=== PATIENT | female | born 1945 | race Caucasian/White ===

== ENCOUNTER 2017-11-24 10:47 | Emergency (ER) | payer BC, MEDICARE ==
[2017-11-24 13:35] VITALS: BP 128/59
--- NOTE | 2017-11-24 13:40 | UC ---
Throat Pain/Nasal Chriss HPI - HPI Summary HPI Summary: 2 weeks of worsening sinus pain and congestion - History of Current Complaint Chief Complaint: UCRespiratory Stated Complaint: SINUS COMPLAINT Time Seen by Provider: 11/24/17 13:24 Hx Obtained From: Patient ?: No Onset/Duration: Sudden Onset, Lasting Weeks - 2, Still Present Severity: Moderate Cough: Nonproductive Associated Signs & Symptoms: Positive: Sinus Discomfort, Nasal Discharge - Allergies/Home Medications Allergies/Adverse Reactions: Allergies Allergy/AdvReac Type Severity Reaction Status Date / Time No Known Allergies Allergy Verified 11/24/17 13:24 Home Medications: Home Medications Alendronate Sodium [Fosamax-] 70 mg PO WEEKLY 11/24/17 [History Confirmed ] Calcium Carbonate-Vitamin D [Calcium 600 + D 600-400 mg-Unit] 1 tab PO DAILY [History Confirmed 11/24/17] Lisinopril TAB* [Prinivil TAB 10 MG*] 10 mg PO DAILY 11/24/17 [History Confirmed 11/24/17] Metoprolol Succinate [Metoprolol Succinate ER] 25 mg PO DAILY 11/24/17 [History Confirmed 11/24/17] Multiple Vitamins W/ Minerals [Womens Multivitamin] 1 tab PO DAILY 11/24/17 [ History Confirmed 11/24/17] Pseudoephedrine TAB* [Sudafed TAB*] 30 mg PO Q6H PRN 11/24/17 [History Confirmed 11/24/17] guaiFENesin ER TAB [Mucinex*] PRN 11/24/17 [History] PMH/Surg Hx/FS Hx/Imm Hx Previously Healthy: No Cardiovascular History: Hypertension - Surgical History Surgical History: Yes Surgery Procedure, Year, and Place: COLECTOMY 2012. OVARY REMOVED- RIGHT AND PROBABLE APPENDECTOMY - Family History Known Family History: Positive: None - Social History Occupation: Retired Lives: With Family Alcohol Use: None Substance Use Type: None Smoking Status (MU): Never Smoked Tobacco - Immunization History Most Recent Influenza Vaccination: FALL 2016 Review of Systems Constitutional: Chills, Fatigue Skin: Negative Eyes: Negative ENT: Nasal Discharge, Sinus Congestion, Sinus Pain/Tenderness Respiratory: Negative Cardiovascular: Negative Gastrointestinal: Negative Genitourinary: Negative Motor: Negative Neurovascular: Negative Musculoskeletal: Negative Neurological: Negative Psychological: Negative Is Patient Immunocompromised?: No All Other Systems Reviewed And Are Negative: Yes Physical Exam Triage Information Reviewed: Yes Appearance: Well-Appearing, No Pain Distress, Well-Nourished Vital Signs: Initial Vital Signs Temp 98.9 F 11/24/17 13:28 Pulse 60 11/24/17 13:28 Resp 16 11/24/17 13:28 BP 128/59 11/24/17 13:28 Pulse Ox 97 11/24/17 13:28 Vital Signs Reviewed: Yes Eye Exam: Normal Eyes: Positive: Conjunctiva Clear ENT Exam: Normal ENT: Positive: Normal ENT inspection, Hearing grossly normal, Pharynx normal, Nasal congestion, Nasal drainage, Sinus tenderness, Uvula midline. Negative: Tonsillar swelling, Tonsillar exudate, Trismus, Muffled voice, Hoarse voice Dental Exam: Normal Neck exam: Normal Neck: Positive: Supple, Nontender, No Lymphadenopathy Respiratory Exam: Normal Respiratory: Positive: Chest non-tender, Lungs clear, Normal breath sounds, No respiratory distress, No accessory muscle use Cardiovascular Exam: Normal Cardiovascular: Positive: RRR, No Murmur, Pulses Normal, Brisk Capillary Refill Musculoskeletal Exam: Normal Musculoskeletal: Positive: Strength Intact, ROM Intact, No Edema Neurological Exam: Normal Neurological: Positive: Alert, Muscle Tone Normal Psychological Exam: Normal Skin Exam: Normal Throat Pain/Nasal Course/Dx - Course Assessment/Plan: Zithromax, Flonase, Mucinex , increase fluids, tylenol, ibuprofen follow with pcp prn - Differential Dx/Diagnosis Provider Diagnoses: Acute Sinusitis Discharge - Discharge Plan Condition: Stable Disposition: HOME Prescriptions: Azithromycin TAB* [Zithromax TAB (Z-NAIMA) 250 mg #6 tabs] 2 tab PO .TODAY, THEN 1 DAILY #1 naima Fluticasone NASAL SPRAY 50MCG* [Flonase NASAL SPRAY 50MCG*] 2 spray BOTH NARES DAILY #1 btl Patient Education Materials: Rhinosinusitis (ED) Referrals: Deon Anaya MD [Primary Care Provider] - If Needed
== END 2017-11-24 13:47 | disposition home or self-care (01) ==
LOC: UCCORT 10:47
DX: J01.90 Acute sinusitis, unspecified (principal); I10 Essential (primary) hypertension
CPT/HCPCS: 99202; G0463

== ENCOUNTER 2018-11-12 08:33 | Inpatient (IN) | payer MEDICARE ==
--- NOTE | 2018-10-31 19:46 | HP ---
HISTORY AND PHYSICAL: DATE OF ADMISSION/SURGERY: 11/12/18 DATE OF OFFICE VISIT: 10/30/18 SURGEON: Anay Tracey MD * (DICTATED BY BRAD RUSH) PROCEDURE: Right total knee arthroplasty. CHIEF COMPLAINT: Right knee pain. HISTORY OF PRESENT ILLNESS: Ms. Villar is a 73-year-old female with end-stage osteoarthritis of the right knee. She has failed conservative treatment, elected to proceed with a right total knee arthroplasty. PAST MEDICAL HISTORY: Hypertension, osteoporosis, and history of colon cancer. PAST SURGICAL HISTORY: Oophorectomy, deviated septum surgery, carpal tunnel release, colon resection and tonsillectomy. CURRENT MEDICATIONS: 1. Lisinopril 5 mg daily. 2. Fluticasone nasal spray. 3. Claritin 10 mg daily. 4. Alendronate sodium 70 mg once a week. 5. Calcium with vitamin D. 6. Metoprolol 25 mg daily. 7. Multivitamin. ALLERGIES: No known drug allergies. FAMILY HISTORY: Ovarian cancer. SOCIAL HISTORY: She is a 73-year-old female. She lives with her . She does not smoke, use drugs or alcohol. REVIEW OF SYSTEMS: A complete 14-point review of systems was reviewed with the patient, is all negative or noncontributory. She denies history of DVT, PE, hepatitis, HIV or anesthesia problems. PHYSICAL EXAMINATION GENERAL: She is well developed, well nourished, in no acute distress. VITAL SIGNS: She stands 65 inches tall, weighs 182 pounds, her blood pressure is 140/28, her heart rate is 72. HEENT: Normocephalic, atraumatic. NECK: Supple. No palpable lymph nodes. PULMONARY: Lungs are clear to auscultation bilaterally. CARDIO: Regular rate and rhythm. Strong S1 and S2. ABDOMEN: Soft, nontender, nondistended. NEUROLOGICAL: She is alert and oriented x3. MUSCULOSKELETAL: Right lower extremity: Skin is intact. There are no open wounds or abrasions. There is a moderate joint effusion. She has some tenderness over the medial and lateral joint line. There is a valgus deformity at 12 degrees. His range of motion is 10 to 115 degrees of flexion with patellofemoral crepitus. She has 2+ dorsalis pedis pulse intact sensation in her lower extremities. Muscle group strengths are intact at 5/5. ASSESSMENT AND PLAN: Ms. Villar is a 73-year-old female with end-stage osteoarthritis of the right knee. She has failed conservative treatment and elected to proceed with a right total knee arthroplasty. The surgery is scheduled for 11/12/[address] Tracey discussed the risks and benefits of surgery at today's visit and all of her questions were answered. She will follow up with Dr. Tracey 2 weeks after the surgery. BRAD RUSH [id number]/[facility] #: [id number] SYEDA
[~2018-11-12 08:33] MED LIST: Buffered Lidocaine 0.9% SYRIN* 5 ML/SYR SYRINGE INTRADERM ONE; Dexamethasone IV* 4 MG/ML 1 ML (4 MG) IV SLOW PU ONE; Famotidine IV* 10 MG/ML 2 ML (20 mg) IV ONE; Lactated Ringers 1000 ML Bag* 1,000 ML IV SCH; Tranexamic Acid 1,000 MG in NS 0.9% 50 ML* (outpatient use) IV SCH
--- OUTSIDE RECORDS SUMMARY | 2018-11-12 08:37 | XMS REPORT | Continuity of Care Document ---
:1945 External Reference #:[id number] Author Name Amaya Munguia Care Team Providers Name Role Phone Yuliana Vargas PA Primary Care Physician Unavailable Payers Type Date Identification Numbers Payment Provider Subscriber Effective: 2010 Policy Number: [id number] BS [employer]ets Cher During Expires: 2011 PayID: [id number] [address] [address] [place] [address] Effective: 2017 Policy Number: [id number] Medicare Blue Ppo Cher During PayID: [id number] [address] [address] [place] [address] Advance Directives Description No Information Available Problems Date Description Provider Status Onset: 10/16/2018 Localized, primary osteoarthritis Anay Tracey M.D. 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 Tobacco Use Start: Unknown Never Smoked Cigarettes Smoking Status Reviewed: 10/30/18 Never Smoked Cigarettes ETOH Use Denies alcohol use Tobacco Use Start: Unknown Patient has never smoked Recreational Drug Use Never Used Drugs Exercise Type/Frequency Walks daily Allergies, Adverse Reactions, Alerts Description No Known Drug Allergies Medications Medication Date Status Form Strength Qnty SIG Indications Ordering Provider Lisinopril / Active Tablets 5mg 1 by Unknown 0000 mouth every day Fluticasone / Active Suspension 50mcg/Act 2 sprays Unknown Propionate 0000 each nostril bid prn Claritin / Active Capsules 10mg 30caps 1 tab Unknown 0000 daily prn Alendronate / Active Tablets 70mg 1 tab Unknown Sodium 0000 once weekly Calcium 600 + 00/ Active Tablets 600-200mg- 1 by Unknown D 0000 Unit mouth daily Metoprolol / Active Tablets ER 25mg 1 by Unknown Succinate ER 0000 24HR mouth every day Multivitamin 00/ Active Tablets 1 by Unknown Adults 0000 mouth every day Vitamin B-12 / Hx Injection inject Unknown 0000 - 1000 mcg 04/29/ monthly 2018 by in there office. Medications Administered in Office Medication Date Status Form Strength Qnty SIG Indications Ordering Provider Celestone 3 mg Administered Injection Alexy M and 3mg 018 MD Darryl Celestone 3 mg Administered Injection Alexy M and 3mg 018 MD Darryl Immunizations Description No Information Available Vital Signs Date Vital Result Comment 10/30/2018 8:45am Height 65 inches 5'5" Weight 182.00 lb Heart Rate 72 /min BP Systolic 140 mmHg BP Diastolic 78 mmHg Respiratory Rate 20 /min Body Temperature 97.4 F BMI (Body Mass Index) 30.3 kg/m2 10/16/2018 8:22am Height 65 inches 5'5" Weight 190.00 lb Heart Rate 80 /min BP Systolic 148 mmHg BP Diastolic 84 mmHg BMI (Body Mass Index) 31.6 kg/m2 10/14/2018 2:17pm Height 65 inches 5'5" Weight 190.00 lb BP Systolic Sitting 136 mmHg BP Diastolic Sitting 72 mmHg Respiratory Rate 17 /min Pain Level 2 9 with bending BMI (Body Mass Index) 31.6 kg/m2 08/12/2018 10:25am Height 65 inches 5'5" Weight 190.00 lb BP Systolic Sitting 124 mmHg BP Diastolic Sitting 76 mmHg Respiratory Rate 16 /min 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 BMI (Body Mass Index) 31.6 kg/m2 05/08/2018 1:01pm Height 63.75 inches 5'3.75" Weight 185.00 lb Heart Rate 77 /min BP Systolic Sitting 120 mmHg BP Diastolic Sitting 76 mmHg Respiratory Rate 12 /min Pain Level 3 BMI (Body Mass Index) 32.0 kg/m2 09/26/2017 9:22am Height 63.75 inches 5'3.75" Weight 185.00 lb Heart Rate 76 /min BP Systolic Sitting 128 mmHg BP Diastolic Sitting 74 mmHg Respiratory Rate 16 /min Pain Level 1 O2 % BldC Oximetry 98 % BMI (Body Mass Index) 32.0 kg/m2 08/15/2017 1:07pm Height 63.75 inches 5'3.75" Weight 190.00 lb Heart Rate 72 /min BP Systolic Sitting 132 mmHg BP Diastolic Sitting 76 mmHg Respiratory Rate 12 /min no respiratory difficulties Pain Level 2 O2 % BldC Oximetry 96 % BMI (Body Mass Index) 32.9 kg/m2 Results Description No Information Available Procedures Date Code Description Status 08/12/2018 84554 Rad Exam; Both Knees, Standing Ap Completed 08/12/2018 21483 Inject/Drain Joint/Bursa Major W/O US Completed 08/16/2017 19633 Rad Exam; Foot Comp Completed 08/16/2017 45097 Rad Exam; Foot Comp Completed 08/15/2017 94784 Rad Exam; Foot Comp Completed 08/15/2017 76494 Rad Exam; Foot Comp Completed 12/07/2010 13394 Rad Exam; Ankle Comp Completed 11/09/2010 29984 CLSD TX Distal Fib FX (Lateral Malleolus) w/o manipulation Completed Encounters Type Date Location Provider Dx Diagnosis Office Visit 10/16/2018 Orthopedic Anay Tracey M17.0 Bilateral primary 8:15a [facility] osteoarthritis of knee M25.561 Pain in right knee M25.562 Pain in left knee M17.11 Unilateral primary osteoarthritis, right knee M21.061 Valgus deformity, not elsewhere classified, right knee Office Visit 10/14/2018 Mona Gerardo7.0 Bilateral primary 2:15p [facility] Andrews MD osteoarthritis of [place] knee Office Visit 08/12/2018 Mona Gerardo7.0 Bilateral primary 10:15a [facility] Y[facility] Andrews MD osteoarthritis of [place] knee Office Visit 05/08/2018 Orthopedic Alexis M19.071 Primary 1:00p [facility] Rodgers M.D. osteoarthritis, [place] right ankle and foot Office Visit 09/26/2017 [facility] M19.071 Primary 9:15a [facility] M.D. osteoarthritis, [place] right ankle and foot Office Visit 08/15/2017 Mona Espinoza M19.071 Primary 1:00p [facility] M.D. osteoarthritis, [place] right ankle and foot M19.072 Primary osteoarthritis, left ankle and foot Plan of Treatment Future Appointment(s):11/29/2018 11:30 am - Anay Tracey M.D. at [facility]11/12/2018 3:30 pm - ANTHONY Elliott at [facility]11/12/2018 3:30 pm - BRAD Cunningham at [facility]11/12/2018 3:30 pm - Anay Tracey M.D. at [facility]10/30/2018 - Anay Tracey M.D.M17.0 Bilateral primary osteoarthritis of kneeFollow up:Follow up: 2 weeks after uocmsmtN14.561 Pain in right kneeM21.061 Valgus deformity, not elsewhere classified, right knee
--- OUTSIDE RECORDS SUMMARY | 2018-11-12 08:38 | XMS REPORT | Continuity of Care Document ---
:1945 External Reference #:[id number] Author Name Yuliana Vargas PA Address [address] [place] [address] Care Team Providers Name Role Phone Deon Anaya M.D. 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 Active Onset: 12/08/2011 Folliculitis Deon Anaya M.D. Active Onset: 12/08/2011 Gynecologic examination Ashlee Monet FNP Active Onset: 12/08/2011 Hyperlipidemia Deon Anaya M.D. Active Onset: 12/08/2011 Sciatica Ashlee Monet FNP Active Onset: 08/02/2018 Essential hypertension Yuliana Vargas PA Active Onset: 08/02/2018 Osteoarthritis Yuliana Vargas PA Active Onset: 08/02/2018 Disorder of nail Yuliana Vargas PA Active Onset: 08/02/2018 Carcinoma of colon Yuliana Vargas PA Active Family History Date Family Member(s) Problem(s) Comments First Brother due to in plane crash () First Brother due to has another brother who is adopted, ( ) living Second Brother due to adopted () Second Brother adopted Second Brother 55 First Sister carpal tunnel otherwise healthy 62yrs Social History Type Date Description Comments Sex Unknown Marital Status Has been 1 time Lives With Spouse Pets 1 cat 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 @ [employer] Work Status Part-Time Employment Hand Dominance Right-Handed ETOH Use Never used alcohol Tobacco Use Reviewed: 04/17/17 Patient has never smoked Recreational Drug Use Never Used Drugs Smoking Status Reviewed: 10/21/18 Patient has never smoked Enjoy Exercising active walking Exercise Limitations none Tattoo/Piercing Pierced ears Tattoo/Piercing Negative For Tattoo Allergies, Adverse Reactions, Alerts Description No Known Drug Allergies Medications Medication Date Status Form Strength Qnty SIG Indications Ordering Provider Amoxicillin/C 09/25 Active Tablets 875-125mg 20tab 1 by mouth J01.90 Deon lavulanate s twice a day Riley Potassium with food s, M.D. Lisinopril 08/10 Active Tablets 10mg 90tab take one Z00. s tablet by Riley mouth every s, M.D. day Fluticasone 04/17 Active Suspension 50mcg/Act 16gm 2 puffs each J30.9 Deon Propionate nare twice a Riley day for 2 s, M.D. weeks Claritin 11/08 Active Capsules 10mg 30cap 1 by mouth J30.9 s every day Riley april s M.DMarcial 2015 Alendronate 06/07 Active Tablets 70mg 4tabs take 1 tablet Deon Sodium /2014 by mouth Riley every week in s, M.D. the morning with 6-8 oz of water and remain upright for 30 minutes Calcium 600 + 12/27 Active Tablets 600-400mg 1 tab by Ang Monet /2011 -Unit mouth twice a Ashlee day G., [employer] Metoprolol 12/27 Active Tablets ER 25mg 90tab take one Deon Succinate ER /2011 24HR s tablet by Riley mouth every s, M.D. day Lisinopril 07/10 Hx Tablets 5mg 90tab 1 by mouth Z00.01 s every day Riley - s MMarcialD. 08/10 Shingles 05/23 Hx Ok to get J30.9 Deon Immunization immunization Riley - at the s, M.D. 07/10 Azithromycin 04/02 Hx Tablets 250mg 6tabs 2 tablets day J01.90 one then one Riley - tablet day s, M.DMarcial 07/10 thru day Azelastine 04/02 Hx Solution 0.05% 6ml one drop in H10.45 each eye Riley (Ophthalmic) - twice a day s, M.D. 07/10 Zithromax 09/21 Hx Tablets 250mg 6tabs day number J01.00 one two Riley - qd,then s, M.DMarcial 05/22 two thru one pill every day Shingles 06/08 Hx ok to receive Vaccine the vaccine Riley - s M.DMarcial 07/10 Terbinafine 05/19 Hx Tablets 250mg 30tab one every day B35.1 s Riley - s MMarcialDMarcial 05/22 Fosamax 08/03 Hx Tablets 70mg 4tabs 1 tab by M81.0 mouth every Riley - week. take in s, M.DMarcial 05/07 in the morning with 6-8 oz of water and remain upright for 30 minutes Zithromax 10/03 Hx Tablets 250mg 6tabs day number 461.8 Deon Z-Aj one two Riley - tablets then s, M.DMarcial 08/02 day number two thru day number five one qd Metoprolol 01/08 Hx Tablets ER 25mg 45tab 11/27 tab by 401.1 Deon Succinate ER 24HR s mouth every Riley - day s, M.DMarcial 05/19 Azithromycin 10/25 Hx Tablets 250mg 6tabs 2 tablets day 461.1 one then one Riley - tablet day2 s, M.DMarcial 01/08 thru day Nasacort Aq 10/23 Hx Aerosol 55mcg/Act 1unit 1 spray each Chiki nostril twice Ashlee - a day OZZIE AlcarazP 01/08 Zithromax 03/20 Hx Tablets 250mg 6tabs day number 466.0 one two Riley - qd,thendays s, M.D. 01/08 two thru five one pill qd Robitussin 02/12 Hx With 6Oz 1-2 teaspoons 786.2 Deon With Codeine Codeine q 6hours Riley - s, M.D. 01/08 Zithromax 12/08 Hx Tablets 250mg 6tabs day number Deon Z-Aj one two Riley - tablets then s, M.D. 12/27 day number two thru day number five one qd Immunizations CPT Code Status Date Vaccine Reaction Lot # 52436 Given 08/29/2018 Flu High Dose Vaccine 33173 Given 09/08/2017 Flu High Dose HD Flu [id number] p Vaccine 72368 Given 08/22/2016 Flu High Dose Vaccine 41514 Given 08/14/2015 Flu High Dose Vaccine 50533 Given 05/19/2015 Prevnar 13 risk & benefits discussed 92425 Given 08/06/2014 Flu Triv Old Code 93014 Given 09/11/2013 Flu Triv Old Code 20857 Given 09/11/2013 Flu Triv Old Code 39744 Given 11/10/2012 Flu Triv Old Code 41946 Given 12/27/2011 Flu Triv Old Code 55957 Given 10/26/2010 Tdap Vaccine over 7 yrs old 06250 Given 10/26/2010 Flu Triv Old Code Vital Signs Date Vital Result Comment 09/25/2018 9:48am Weight 194.00 lb BP Systolic 130 mmHg BP Diastolic 70 mmHg Body Temperature 99.0 F 07/24/2018 2:31pm Weight 193.00 lb BP Systolic 126 mmHg BP Diastolic 80 mmHg Height 63 inches 5'3" Body Temperature 98.8 F Respiratory Rate 12 /min BMI (Body Mass Index) 34.2 kg/m2 05/07/2018 9:46am Weight 188.00 lb BP Systolic 124 mmHg BP Diastolic 74 mmHg 02/01/2018 9:20am Weight 183.00 lb BP Systolic 120 mmHg BP Diastolic 76 mmHg 10/23/2017 10:01am Weight 187.00 lb BP Systolic 126 mmHg BP Diastolic 80 mmHg 08/10/2017 9:47am Weight 190.00 lb 07/10/2017 1:24pm Weight 192.00 lb BP Systolic 126 mmHg BP Diastolic 76 mmHg Height 63 inches 5'3" Body Temperature 97.8 F Respiratory Rate 12 /min BMI (Body Mass Index) 34.0 kg/m2 04/17/2017 9:48am Weight 196.00 lb BP Systolic 138 mmHg BP Diastolic 102 mmHg Body Temperature 97.3 F 04/02/2017 11:05am Weight 194.00 lb BP Systolic 124 mmHg BP Diastolic 70 mmHg Body Temperature 96.6 F 11/08/2016 11:29am Weight 190.00 lb BP Systolic 122 mmHg BP Diastolic 80 mmHg Heart Rate 64 /min Body Temperature 98.8 F O2 % BldC Oximetry 98 % 06/06/2016 8:49am Weight 195.00 lb BP Systolic 124 mmHg BP Diastolic 70 mmHg 06/02/2016 11:20am BP Systolic 120 mmHg BP Diastolic 80 mmHg 05/22/2016 8:33am Weight 195.00 lb BP Systolic 128 mmHg BP Diastolic 74 mmHg Height 63.6 inches 5'3.60" Heart Rate 64 /min Body Temperature 98.8 F Respiratory Rate 14 /min BMI (Body Mass Index) 33.9 kg/m2 09/21/2015 9:18am Weight 196.00 lb BP Systolic 130 mmHg BP Diastolic 80 mmHg Body Temperature 97.9 F 05/19/2015 8:51am Weight 187.00 lb BP Systolic 128 mmHg BP Diastolic 70 mmHg Height 63 inches 5'3" Heart Rate 60 /min Body Temperature 98.0 F Respiratory Rate 14 /min BMI (Body Mass Index) 33.1 kg/m2 01/20/2015 11:06am BP Systolic 130 mmHg BP Diastolic 70 mmHg 04/29/2014 11:02am Weight 187.00 lb BP Systolic 140 mmHg BP Diastolic 70 mmHg Height 64 inches 5'4" Heart Rate 70 /min Body Temperature 98.0 F Respiratory Rate 12 /min BMI (Body Mass Index) 32.1 kg/m2 10/03/2013 10:29am Weight 188.00 lb BP Systolic 126 mmHg BP Diastolic 80 mmHg Body Temperature 97.8 F 01/08/2013 8:49am Weight 190.00 lb BP Systolic 124 mmHg BP Diastolic 78 mmHg Height 65 inches 5'5" Heart Rate 72 /min Body Temperature 98.4 F Respiratory Rate 16 /min BMI (Body Mass Index) 31.6 kg/m2 10/25/2012 9:50am Weight 193.00 lb Body Temperature 98.8 F 05/15/2012 11:18am Weight 185.00 lb BP Systolic 128 mmHg BP Diastolic 78 mmHg Body Temperature 100.0 F 02/13/2012 8:58am Weight 181.00 lb BP Systolic 124 mmHg BP Diastolic 74 mmHg 12/27/2011 2:05pm Weight 179.00 lb BP Systolic 128 mmHg BP Diastolic 80 mmHg Height 62.5 inches 5'2.50" BMI (Body Mass Index) 32.2 kg/m2 12/08/2011 11:00am Weight 180.00 lb BP Systolic 128 mmHg BP Diastolic 84 mmHg Body Temperature 98.9 F Results Test Date Facility Test Result H/L Range Note Laboratory test 06/03/2018 [facility] [address] Fungal Cult SEE RESULT 1, 2 finding [phone] Skin/Hair/Marcy BELOW ls Fungal Culture Id See Comment 3 Basic Metabolic Panel 05/03/2018 [facility] Glucose 96 mg/dL 74- 106 4 [phone] BUN 20 mg/dL High 7-18 Creatinine 0.9 mg/dL 0.6-1.3 Glom Filtration Rate, Estimate >60 mL/min >60 If >60 mL/min >60 5 BUN/Creat 22.2 ratio Sodium 142 mmol/L 136-145 Potassium 4.4 mmol/L 3.5-5.1 Chloride 109 mmol/L High 98-107 Carbon Dioxide 26 mmol/L 21-32 Anion Gap 7 mEq/L Low 8-16 Calcium 8.4 mg/dL Low 8.5-10.1 CBC Auto Diff 05/03/2018 [facility] White Blood Count 5.1 K/uL 3.1 -10.7 [phone] Red Blood Count 4.31 M/uL 3.90-5.40 Hemoglobin 12.4 gm/dL 11.6-15.8 Hematocrit 38.2 % 36.0-46.1 Mean Cell Volume 88.6 fl 80.9-99.0 Mean Corpuscular HGB 28.8 pg 25.9-32.7 Mean Corpuscular HGB Conc 32.5 g/dL 30.8-34.3 Platelet Count 240 K/uL 155-360 Red Cell Distri Width SD 44.8 fl 3-47 Red Cell Distri Width %CV 14.2 % 11.7-14.4 Mean Platelet Volume 10.1 fL 8.9-12.4 Neut% 52.0 % 40.4-72.8 Lymph % 35.9 % 20.0-42.0 Platte % 8.6 % 4.3-13.2 Eo% 3.1 % 0.0-6.6 Bas% 0.4 % 0.0-1.1 Neut# 2.67 K/uL 1.8-7.0 Lymph # 1.84 K/uL 1.0-4.0 Platte # 0.44 K/uL 0.3-0.9 Eos # 0.16 K/uL 0.0-0.5 Baso # 0.02 K/uL 0.0-0.1 Lipid Profile 05/03/2018 [facility] Cholesterol 192 mg/dL <200 6 (Trig/Chol/HDL) [phone] Triglycerides 124 mg/dL <150 7 HDL Cholesterol 40 mg/dL >40 8 LDL-Cholesterol 127 mg/dL < 100 9 Liver Function Panel 05/03/2018 [facility] Total Protein 6.8 g/dL 6.4-8.2 [phone] Albumin 3.8 g/dL 3.4-5.0 Globulin 3.0 g/dL 1.9-4.3 Alb/Glob 1.3 ratio Bilirubin,Total 0.5 mg/dL 0.2-1.0 Bilirubin,Direct 0.1 mg/dL 0.0-0.2 Bilirubin,Indirect 0.4 mg/dL 0.0-0.9 Sgot/Ast 19 U/L 15-37 SGPT/Alt 27 U/L 12-78 Alkaline Phosphatase 78 U/L 45-117 CBS W/Automated Diff 04/25/2017 [facility] White Blood 6.0 K/uL 3.1-10.7 10 [phone] Count Red Blood Count 4.58 M/uL 3.90-5.40 Hemoglobin 13.4 gm/dL 11.6-15.8 Hematocrit 41.1 % 36.0-46.1 Mean Cell Volume 89.7 fl 80.9-99.0 Mean Corpuscular HGB 29.3 pg 25.9-32.7 Mean Corpuscular HGB Conc 32.6 g/dL 30.8-34.3 Platelet Count 275 K/uL 150-400 Red Cell Distri Width SD 48.7 fl High 3-47 Red Cell Distri Width %CV 15.1 % High 11.7-14.4 Mean Platelet Volume 10.1 fL 8.9-12.4 Neut% 67.2 % 40.4-72.8 Lymph % 22.5 % 20.0-42.0 Platte % 7.8 % 4.3-13.2 Eo% 2.2 % 0.0-6.6 Bas% 0.3 % 0.0-1.1 Neut# 4.04 K/uL 1.8-7.0 Lymph # 1.35 K/uL 1.0-4.0 Platte # 0.47 K/uL 0.3-0.9 Eos # 0.13 K/uL 0.0-0.5 Baso # 0.02 K/uL 0.0-0.1 Laboratory test finding 04/25/2017 [facility] Cea 1.1 ng/mL 11 [phone] Iron-Tibc-%Sat 04/25/2017 [facility] Serum Iron 73 g/dL 50-170 [phone] Total Iron Binding Capacity 368 g/dL 250-450 Transferrin %Saturation 20 % 12-57 Vitamin B12 And Folate 04/25/2017 [facility] Vitamin B12 365 pg/mL 193-986 [phone] Folic Acid 16.6 ng/mL 3.1-17.5 Laboratory test finding 04/25/2017 [facility] Ferritin 28 ng/mL 8- 252 [phone] Comprehensive Metabolic 04/25/2017 [facility] Glucose 91 mg/dL 74- 106 Panel [phone] BUN 16 mg/dL 7-18 Creatinine 0.9 mg/dL 0.6-1.3 Glom Filtration Rate, Estimate >60 mL/min >60 If >60 mL/min >60 12 BUN/Creat 17.7 ratio Sodium 141 mmol/L 136-145 Potassium 4.3 mmol/L 3.5-5.1 Chloride 105 mmol/L 98-107 Carbon Dioxide 29 mmol/L 21-32 Anion Gap 7 mEq/L Low 8-16 Calcium 8.4 mg/dL Low 8.5-10.1 Total Protein 6.7 g/dL 6.4-8.2 Albumin 3.7 g/dL 3.4-5.0 Globulin 3.0 g/dL 1.9-4.3 Alb/Glob 1.2 ratio Bilirubin,Total 0.8 mg/dL 0.2-1.0 Sgot/Ast 15 U/L 15-37 SGPT/Alt 26 U/L 12-78 Alkaline Phosphatase 80 U/L 45-117 CBS W/Automated Diff 03/01/2017 [facility] White Blood 5.8 K/uL 3.1-10.7 13 [phone] Count Red Blood Count 4.28 M/uL 3.90-5.40 Hemoglobin 12.4 gm/dL 11.6-15.8 Hematocrit 37.4 % 36.0-46.1 Mean Cell Volume 87.4 fl 80.9-99.0 Mean Corpuscular HGB 29.0 pg 25.9-32.7 Mean Corpuscular HGB Conc 33.2 g/dL 30.8-34.3 Platelet Count 283 K/uL 150-400 Red Cell Distri Width SD 47.3 fl High 3-47 Red Cell Distri Width %CV 15.2 % High 11.7-14.4 Mean Platelet Volume 9.9 fL 8.9-12.4 Neut% 58.0 % 40.4-72.8 Lymph % 31.6 % 20.0-42.0 Platte % 7.5 % 4.3-13.2 Eo% 2.6 % 0.0-6.6 Bas% 0.3 % 0.0-1.1 Neut# 3.34 K/uL 1.8-7.0 Lymph # 1.82 K/uL 1.0-4.0 Platte # 0.43 K/uL 0.3-0.9 Eos # 0.15 K/uL 0.0-0.5 Baso # 0.02 K/uL 0.0-0.1 Iron-Tibc-%Sat 03/01/2017 [facility] Serum Iron 53 g/dL 50-170 [phone] Total Iron Binding Capacity 365 g/dL 250-450 Transferrin %Saturation 15 % 12-57 Vitamin B12 And Folate 03/01/2017 [facility] Vitamin B12 423 pg/mL 193-986 [phone] Folic Acid 19.9 ng/mL High 3.1-17.5 Laboratory test 03/01/2017 [facility] Ferritin 79 ng/mL 8-252 finding [phone] CBS W/Automated 01/31/2017 [facility] White Blood 5.1 K/uL 3.1- 10.7 14 Diff [phone] Count Red Blood Count 4.50 M/uL 3.90-5.40 Hemoglobin 12.5 gm/dL 11.6-15.8 Hematocrit 39.7 % 36.0-46.1 Mean Cell Volume 88.2 fl 80.9-99.0 Mean Corpuscular HGB 27.8 pg 25.9-32.7 Mean Corpuscular HGB Conc 31.5 g/dL 30.8-34.3 Platelet Count 311 K/uL 150-400 Red Cell Distri Width SD 45.0 fl 3-47 Red Cell Distri Width %CV 14.3 % 11.7-14.4 Mean Platelet Volume 10.1 fL 8.9-12.4 Neut% 56.5 % 40.4-72.8 Lymph % 31.2 % 20.0-42.0 Platte % 8.7 % 4.3-13.2 Eo% 3.0 % 0.0-6.6 Bas% 0.6 % 0.0-1.1 Neut# 2.86 K/uL 1.8-7.0 Lymph # 1.58 K/uL 1.0-4.0 Platte # 0.44 K/uL 0.3-0.9 Eos # 0.15 K/uL 0.0-0.5 Baso # 0.03 K/uL 0.0-0.1 Laboratory test 01/31/2017 [facility] Cea 1.1 ng/mL 15 finding [phone] Iron-Tibc-%Sat 01/31/2017 [facility] Serum Iron 46 g/dL Low 50- 170 [phone] Total Iron Binding Capacity 424 g/dL 250-450 Transferrin %Saturation 11 % Low 12-57 Vitamin B12 And Folate 01/31/2017 [facility] Vitamin B12 349 pg/mL 193-986 [phone] Folic Acid 16.8 ng/mL 3.1-17.5 Laboratory test finding 01/31/2017 [facility] Ferritin 11 ng/mL 8- 252 [phone] Comprehensive Metabolic 01/31/2017 [facility] Glucose 92 mg/dL 74- 106 Panel [phone] BUN 17 mg/dL 7-18 Creatinine 1.0 mg/dL 0.6-1.3 Glom Filtration Rate, Estimate 58 mL/min >60 If >60 mL/min >60 16 BUN/Creat 17.0 ratio Sodium 141 mmol/L 136-145 Potassium 4.5 mmol/L 3.5-5.1 Chloride 107 mmol/L 98-107 Carbon Dioxide 27 mmol/L 21-32 Anion Gap 7 mEq/L Low 8-16 Calcium 8.5 mg/dL 8.5-10.1 Total Protein 6.9 g/dL 6.4-8.2 Albumin 3.6 g/dL 3.4-5.0 Globulin 3.3 g/dL 1.9-4.3 Alb/Glob 1.1 ratio Bilirubin,Total 0.9 mg/dL 0.2-1.0 Sgot/Ast 18 U/L 15-37 SGPT/Alt 25 U/L 12-78 Alkaline Phosphatase 77 U/L 45-117 Laboratory test 08/03/2016 [facility] Thyroid Stim 2.06 uIU/mL 0.30-4.20 17 finding [phone] Hormone Laboratory test 06/05/2016 [facility] Skin Biopsy See Note 18 finding [phone] Basic Metabolic 06/01/2016 [facility] Glucose 105 mg/dL 74-106 Panel [phone] BUN 15 mg/dL 7-18 Creatinine 0.9 mg/dL 0.6-1.3 Glom Filtration Rate, Estimate >60 mL/min >60 If >60 mL/min >60 19 BUN/Creat 16.6 ratio Sodium 143 mmol/L 136-145 Potassium 4.1 mmol/L 3.5-5.1 Chloride 111 mmol/L High 98-107 Carbon Dioxide 26 mmol/L 21-32 Anion Gap 6 mEq/L Low 8-16 Calcium 8.5 mg/dL 8.5-10.1 CBC W/Automated Diff 06/01/2016 [facility] White Blood 4.7 K/uL 3.1-10.7 [phone] Count Red Blood Count 4.27 M/uL 3.90-5.40 Hemoglobin 12.3 gm/dL 11.6-15.8 Hematocrit 37.2 % 36.0-46.1 Mean Cell Volume 87.1 fl 80.9-99.0 Mean Corpuscular HGB 28.8 pg 25.9-32.7 Mean Corpuscular HGB Conc 33.1 g/dL 30.8-34.3 Platelet Count 271 K/uL 155-360 Red Cell Distri Width SD 44.1 fl 3-47 Red Cell Distri Width %CV 14.2 % 11.7-14.4 Mean Platelet Volume 9.8 fL 8.9-12.4 Neut% 60.0 % 40.4-72.8 Lymph % 28.7 % 17.0-46.1 Platte % 7.9 % 4.3-13.2 Eo% 3.0 % 0.0-6.6 Bas% 0.4 % 0.0-1.1 Neut# 2.82 K/uL 1.8-7.0 Lymph # 1.35 K/uL Low 1.8-7.0 Platte # 0.37 K/uL 0.3-0.9 Eos # 0.14 K/uL 0.0-0.5 Baso # 0.02 K/uL 0.0-0.1 Liver Function Tests 06/01/2016 [facility] Total Protein 6.9 g/dL 6.4-8.2 [phone] Albumin 3.7 g/dL 3.4-5.0 Globulin 3.2 g/dL 1.9-4.3 Alb/Glob 1.2 ratio Bilirubin,Total 0.8 mg/dL 0.2-1.0 Bilirubin,Direct 0.2 mg/dL 0.0-0.2 Bilirubin,Indirect 0.6 mg/dL 0.0-0.9 Sgot/Ast 16 U/L 15-37 SGPT/Alt 31 U/L 12-78 Alkaline Phosphatase 79 U/L 45-117 Laboratory 06/01/2016 [facility] Vitamin 26.8 Low 30.0-100.0 20 test finding [phone] D,25-Hydroxy ng/mL Liver Function 08/07/2015 [facility] Total Protein 6.8 g/dL 6.4- 8.2 Tests [phone] Albumin 3.2 g/dL Low 3.4-5.0 Globulin 3.6 g/dL 1.9-4.3 Alb/Glob 0.9 ratio Bilirubin,Total 0.4 mg/dL 0.2-1.0 Bilirubin,Direct < 0.1 mg/dL 0.0-0.2 Bilirubin,Indirect 0.3 mg/dL 0.0-0.9 Sgot/Ast 16 U/L 15-37 SGPT/Alt 27 U/L 12-78 Alkaline Phosphatase 79 U/L 45-117 Liver Function Tests 06/18/2015 [facility] Total Protein 6.9 g/dL 6.4-8.2 [phone] Albumin 3.7 g/dL 3.4-5.0 Globulin 3.2 g/dL 1.9-4.3 Alb/Glob 1.2 ratio Bilirubin,Total 0.8 mg/dL 0.2-1.0 Bilirubin,Direct 0.1 mg/dL 0.0-0.2 Bilirubin,Indirect 0.7 mg/dL 0.0-0.9 Sgot/Ast 17 U/L 15-37 SGPT/Alt 28 U/L 12-78 Alkaline Phosphatase 86 U/L 45-117 CBS W/Automated Diff 06/18/2015 [facility] White Blood 4.6 K/uL 3.1-10.7 [phone] Count Red Blood Count 4.47 M/uL 3.90-5.40 Hemoglobin 13.4 gm/dL 11.6-15.8 Hematocrit 40.2 % 36.0-46.1 Mean Cell Volume 89.9 fl 80.9-99.0 Mean Corpuscular HGB 30.0 pg 25.9-32.7 Mean Corpuscular HGB Conc 33.3 g/dL 30.8-34.3 Platelet Count 251 K/uL 155-360 Red Cell Distri Width SD 43.0 fl 3-47 Red Cell Distri Width %CV 13.3 % 11.7-14.4 Mean Platelet Volume 9.8 fL 8.9-12.4 Neut% 57.5 % 40.4-72.8 Lymph % 31.9 % 17.0-46.1 Platte % 7.2 % 4.3-13.2 Eo% 3.0 % 0.0-6.6 Bas% 0.4 % 0.0-1.1 Neut# 2.65 K/uL 1.0-7.0 Lymph # 1.47 K/uL Low 1.8-7.0 Platte # 0.33 K/uL 0.3-0.9 Eos # 0.14 K/uL 0.0-0.5 Baso # 0.02 K/uL 0.0-0.1 Xray 06/02/2015 [facility] bilateral <pending> [address] [place] [address] mammogram [phone] Basic Metabolic 04/30/2014 [facility] Glucose 102 mg/dL 76-115 Panel [phone] BUN 19 mg/dL 5-23 Creatinine 0.9 mg/dL 0.5-1.4 Glom Filtration Rate, Estimate >60 mL/min >60 If >60 mL/min >60 21 BUN/Creat 21.1 ratio Sodium 139 mmol/L 136-145 Potassium 4.1 mmol/L 3.5-5.1 Chloride 107 mmol/L 98-107 Carbon Dioxide 28 mEq/L 18-29 Anion Gap 8 mEq/L 8-16 Calcium 8.5 mg/dL 8.5-10.1 CBS W/Automated Diff 04/30/2014 [facility] White Blood 5.3 K/uL 3.1-10.7 [phone] Count Red Blood Count 4.33 M/uL 3.90-5.40 Hemoglobin 13.7 gm/dL 11.6-15.8 Hematocrit 39.5 % 36.0-46.1 Mean Cell Volume 91.2 fl 80.9-99.0 Mean Corpuscular HGB 31.6 pg 25.9-32.7 Mean Corpuscular HGB Conc 34.7 g/dL High 30.8-34.3 Platelet Count 282 K/uL 155-360 Red Cell Distri Width SD 42.5 fl 3-47 Red Cell Distri Width %CV 13.2 % 11.7-14.4 Mean Platelet Volume 10.1 fL 8.9-12.4 Neut% 56.2 % 40.4-72.8 Lymph % 33.3 % 17.0-46.1 Platte % 7.7 % 4.3-13.2 Eo% 2.4 % 0.0-6.6 Bas% 0.4 % 0.0-1.1 Neut# 2.98 K/uL 1.0-7.0 Lymph # 1.77 K/uL 0.8-3.4 Platte # 0.41 K/uL 0.3-0.9 Eos # 0.13 K/uL 0.0-0.5 Baso # 0.02 K/uL 0.0-0.1 LDL Cholesterol Profile 04/30/2014 [facility] Cholesterol 187 mg/dL 120-200 [phone] Triglycerides 102 mg/dL 16-231 HDL Cholesterol 38 mg/dL 29-83 LDL-Cholesterol 129 mg/dL 62-185 Liver Function Tests 04/30/2014 [facility] Total Protein 6.5 g/dL 6.3-8.0 [phone] Albumin 3.5 g/dL 3.5-5.0 Globulin 3.0 g/dL 1.9-4.3 Alb/Glob 1.2 ratio Bilirubin,Total 0.6 mg/dL 0.2-1.2 Bilirubin,Direct 0.1 mg/dL 0.1-0.4 Bilirubin,Indirect 0.5 mg/dL 0.0-0.9 Sgot/Ast 18 U/L 16-40 SGPT/Alt 29 U/L Low 30-65 Alkaline Phosphatase 101 U/L 50-136 Laboratory test 04/29/2014 [facility] ThinPrep Pap: See Note 22 finding [phone] Cervix/Endocx Laboratory test 09/23/2013 [facility] BUN 14 mg/dL 5-23 23 finding [phone] Creatinine 0.9 mg/dL 0.5-1.4 24 Xray 01/16/2013 [facility] [address] Mammography, <pending> [address] [place] [address] [phone] Xray 01/16/2013 [facility] [address] sonogram kidneys <pending> [address] [place] [address] [phone] Basic Metabolic 01/14/2013 [facility] Glucose 106 mg/dL 76-115 Panel [phone] BUN 18 mg/dL 5-23 Creatinine 1.0 mg/dL 0.5-1.4 Glom Filtration Rate, Estimate 59 mL/min >60 If >60 mL/min >60 25 BUN/Creat 18.0 ratio Sodium 143 mmol/L 136-145 Potassium 4.3 mmol/L 3.5-5.1 Chloride 109 mmol/L High 98-107 Carbon Dioxide 29 mEq/L 18-29 Anion Gap 9 mEq/L 8-16 Calcium 8.8 mg/dL 8.5-10.1 General Health 01/14/2013 [facility] Thyroid Stim 1.56 uIU/mL 0.49 -4.67 Panel/CBS [phone] Hormone LDL Cholesterol 01/14/2013 [facility] Cholesterol 186 mg/dL 120- 200 Profile [phone] Triglycerides 94 mg/dL 16-231 HDL Cholesterol 35 mg/dL 29-83 LDL-Cholesterol 132 mg/dL 62-185 CBS W/Automated Diff 01/14/2013 [facility] White Blood 5.6 K/uL 3.1-10.7 [phone] Count Red Blood Count 4.22 M/uL 3.90-5.40 Hemoglobin 11.3 gm/dL Low 11.6-15.8 Hematocrit 36.3 % 36.0-46.1 Mean Cell Volume 86.0 fl 80.9-99.0 Mean Corpuscular HGB 26.8 pg 25.9-32.7 Mean Corpuscular HGB Conc 31.1 g/dL 30.8-34.3 Platelet Count 286 K/uL 155-360 Red Cell Distri Width SD 43.5 fl 3-47 Red Cell Distri Width %CV 14.3 % 11.7-14.4 Mean Platelet Volume 9.9 fL 8.9-12.4 Neut% 60.5 % 40.4-72.8 Lymph % 27.6 % 17.0-46.1 [place] % 8.4 % 4.3-13.2 Eo% 3.0 % 0.0-6.6 Bas% 0.5 % 0.0-1.1 Neut# 3.37 K/uL 1.0-7.0 Lymph # 1.54 K/uL 0.8-3.4 [place] # 0.47 K/uL 0.3-0.9 Eos # 0.17 K/uL 0.0-0.5 Baso # 0.03 K/uL 0.0-0.1 Laboratory test 01/08/2013 [facility] Urine Screen See Note 26 finding [phone] Microalb/Creat 01/08/2013 [facility] Microalbumin,Ur 10.8 mg/L 0.0 -18.5 Ratio,Random [phone] Microalbumin/Creatinine Ratio 5.7 ug/mgCrt 0.0-30.0 Urine Creatinine Conc 190 mg/dL Urinalysis With 01/08/2013 [facility] Urine Color YELLOW Yellow Microscopic [phone] Urine Clarity CLEAR Clear Urine Glucose - Dipstick NEGATIVE mg/dL Negative Urine Bilirubin - Dipstick NEGATIVE Negative Urine Ketone NEGATIVE mg/dL Negative Urine Specific [place] >=1.030 1.010-1.030 Urine Blood SMALL High Negative Urine PH 5.5 Low 6.5-7.5 Urine Protein - Dipstick NEGATIVE mg/dL Negative Urine Urobilinogen - Dipstick 0.2 E.U./dL 0.2-1.0 Urine Nitrite - Dipstick NEGATIVE Negative Urine Leuk Esterase TRACE High Negative Urine RBC 0-2 rbc/hpf 0-7 Urine WBC 2-5 wbc/hpf 0-7 Urine Epithelial Cells VERY FEW NONESEEN/lpf Urine Mucus SMALL NONESEEN Laboratory test 08/23/2012 [facility] Polyp Colon See Note 27 finding [phone] And/Or Rectum CBC W/Automated 01/04/2012 [facility] White Blood 5.6 K/uL 3.1- 10.7 Diff [phone] Count Red Blood Count 4.36 M/uL 3.90-5.40 Hemoglobin 12.9 gm/dL 11.6-15.8 Hematocrit 39.8 % 36.0-46.1 Mean Cell Volume 91.3 fl 80.9-99.0 Mean Corpuscular HGB 29.6 pg 25.9-32.7 Mean Corpuscular HGB Conc 32.4 g/dL 30.8-34.3 Platelet Count 232 K/uL 155-360 Red Cell Distri Width SD 41.9 fl 3-47 Red Cell Distri Width %CV 13.0 % 11.7-14.4 Mean Platelet Volume 10.0 fL 8.9-12.4 Neut% 54.1 % 40.4-72.8 Lymph % 32.4 % 17.0-46.1 [place] % 9.9 % 4.3-13.2 Eo% 3.2 % 0.0-6.6 Bas% 0.4 % 0.0-1.1 Neut# 3.00 K/uL 1.0-7.0 Lymph # 1.80 K/uL 0.8-3.4 [place] # 0.55 K/uL 0.3-0.9 Eos # 0.18 K/uL 0.0-0.5 Baso # 0.02 K/uL 0.0-0.1 Laboratory test 01/04/2012 [facility] Thyroid Stim 2.54 uIU/mL 0.49-4.67 finding [phone] Hormone Comprehensive 01/04/2012 [facility] Glucose 98 mg/dL 76-115 Metabolic Panel [phone] BUN 17 mg/dL 5-23 Creatinine 1.0 mg/dL 0.5-1.4 Glom Filtration Rate, Estimate 59 mL/min >60 If >60 mL/min >60 28 BUN/Creat 17.0 ratio Sodium 141 mmol/L 136-145 Potassium 4.5 mmol/L 3.5-5.1 Chloride 106 mmol/L 98-107 Carbon Dioxide 28 mEq/L 18-29 Anion Gap 12 mEq/L 8-16 Calcium 9.0 mg/dL 8.5-10.1 Total Protein 7.0 g/dL 6.3-8.0 Albumin 3.9 g/dL 3.5-5.0 Globulin 3.1 g/dL 1.9-4.3 Alb/Glob 1.3 ratio Bilirubin,Total 0.8 mg/dL 0.2-1.2 Sgot/Ast 23 U/L 16-40 SGPT/Alt 41 U/L 30-65 Alkaline Phosphatase 98 U/L 50-136 Laboratory test 01/04/2012 [facility] Vitamin D,1,25 32.8 pg/mL 10.0-75.0 29 finding [phone] Dihydroxy Laboratory test 12/27/2011 [facility] ThinPrep Pap: See Note 30 finding [phone] Cervix/Endocx Urinalysis With 12/27/2011 [facility] Urine Color YELLOW Yellow Microscopic [phone] Urine Clarity CLEAR Clear Urine Glucose - Dipstick NEGATIVE mg/dL Negative Urine Bilirubin - Dipstick NEGATIVE Negative Urine Ketone NEGATIVE mg/dL Negative Urine Specific [place] 1.025 1.010-1.030 Urine Blood TRACE Negative Urine PH 6.0 Low 6.5-7.5 Urine Protein - Dipstick NEGATIVE mg/dL Negative Urine Urobilinogen - Dipstick 0.2 E.U./dL 0.2-1.0 Urine Nitrite - Dipstick NEGATIVE Negative Urine Leuk Esterase SMALL High Negative Urine RBC 0-2 rbc/hpf 0-7 Urine WBC 2-5 wbc/hpf 0-7 Urine Epithelial Cells FEW NONESEEN Urine Bacteria FEW NONESEEN Urine Mucus VERY FEW NONESEEN Urine Amorph Sediment SMALL Negative Laboratory test finding 12/27/2011 [facility] Urine Screen See Note 31 [phone] Laboratory test finding 12/27/2011 [facility] Skin Tag See Note 32 [phone] 1 [id number] 2 SEE RESULT BELOW Name: CHER HANNA : [address]: Yuliana SALINAS Acct: [id number] Unit: [id number] AGE: 73 Location: [facility] Re06/03/18 SEX: F Status: REG REF SPEC: [id number] DEBBY: 06/03/[address] [facility] [address]: Yuliana SALINAS REQ: [id number] RECD: 06/03/18 STATUS: COMP _ SOURCE: TOENAIL SPDES: ORDERED: Fungal Toby Billingsley COMMENTS: [id number] Procedure Result Reported Site Fungal Cult Skin/Hair/Nails Final 07/01/18- 1300 ML Organism 1 MOLD Referred Specimen Isolate sent to [facility] for Identification Organism 2 MOLD#2 Referred Specimen Isolate sent to [facility] for Identification * ML - Main Lab . END OF REPORT DEPARTMENT OF PATHOLOGY, [address] [place] [address] Mahad Hudson M.D. Director [facility] # [id number] 3 SOURCE: TOE NAIL CULTURE REFERRED FOR ID, FUNGUS FINAL YEAST or FILAMENTOUS FUNGUS Unable to identify. Organism not viable. Result delayed: organism grows poorly or was received in mixture. Test Performed by: [facility] - [address] [address] 4 J30.9 M19.90 I10 M81.0 5 Note: Persistent reduction for 3 months or more in an eGFR <60 mL/min/1.73 m2 defines CKD. Patients with eGFR values >/=60 mL/min/1.73 m2 may also have CKD if evidence of persistent proteinuria is present. The original MDRD equation for estimated GFR is not valid for patients less than 18 years of age. Additional information may be found at www.kdoqi.org. 6 Reference Guidelines*: Desirable: ........... < 200 mg/dL Borderline High: ..... 200-239 mg/dL High: ................ >=240 mg/dL * The National Cholesterol Education Program (NCEP) 7 Reference Guidelines*: Normal: ............. < 150 mg/dL Borderline High: .... 150-199 mg/dL High: ............... 200-499 mg/dL Very High: .......... > 500 mg/dL * Source: National Cholesterol Education Program (NCEP) 8 Reference Guidelines*: Low HDL: ..... < 40 mg/dL Normal: ..... 40-60 mg/dL Desirable: ... > 60 mg/dL *The National Cholesterol Education Program(NCEP) 9 Reference Guidelines*: Optimal:........... <100 mg/dL Near Optimal....... 100-129 mg/dL Borderline High.... 130-159 mg/dL High............... 160-189 mg/dL Very High.......... >=190 mg/dL * Source: National Cholesterol Education Program (NCEP) 10 C18.0 Z86.010 11 Non-smokers ..... 0.0-3.0 ng/mL Smokers ......... 0.0-5.0 ng/mL THIS ASSAY IS NOT INTENDED A CANCER SCREENING TEST The concentration of CEA in a given specimen, determined with assays from different manufacturers, can vary due to differences in assay methods and reagent specificity. Values obtained from different assay methods cannot be used interchangeably. Method: uBiome [place] Chemiluminescent Immunoassay 12 Note: Persistent reduction for 3 months or more in an eGFR <60 mL/min/1.73 m2 defines CKD. Patients with eGFR values >/=60 mL/min/1.73 m2 may also have CKD if evidence of persistent proteinuria is present. The original MDRD equation for estimated GFR is not valid for patients less than 18 years of age. Additional information may be found at www.kdoqi.org. 13 C18.0 14 C18.0 Z86.010 15 Non-smokers ..... 0.0-3.0 ng/mL Smokers ......... 0.0-5.0 ng/mL THIS ASSAY IS NOT INTENDED A CANCER SCREENING TEST The concentration of CEA in a given specimen, determined with assays from different manufacturers, can vary due to differences in assay methods and reagent specificity. Values obtained from different assay methods cannot be used interchangeably. Method: Siemens Anjuke [place] Chemiluminescent Immunoassay 16 Note: Persistent reduction for 3 months or more in an eGFR <60 mL/min/1.73 m2 defines CKD. Patients with eGFR values >/=60 mL/min/1.73 m2 may also have CKD if evidence of persistent proteinuria is present. The original MDRD equation for estimated GFR is not valid for patients less than 18 years of age. Additional information may be found at www.kdoqi.org. 17 G56.01 G56.02 18 OPERATION/PROCEDURE Right upper arm lesion excision. DIAGNOSIS: "SKIN, RIGHT UPPER ARM, EXCISION": - HYPERPLASTIC ACTINIC KERATOSIS. /clf 1552 GROSS Received in formalin in a properly labeled container with the patient's name and accession number designated, "EXCISED LESION, RIGHT UPPER ARM". The specimen consists of a 0.6 x 0.5 x 0.4 cm. excision of skin. The skin surface is thorpe and multilobulated. The specimen is inked, bisected and submitted entirely, one cassette. /clf PRE OPERATIVE DIAGNOSIS Neoplasm, right upper arm. REVIEW CODE CODE: I Signed Electronically signed Tess RODRIGUEZ MD 1607 19 Note: Persistent reduction for 3 months or more in an eGFR <60 mL/min/1.73 m2 defines CKD. Patients with eGFR values >/=60 mL/min/1.73 m2 may also have CKD if evidence of persistent proteinuria is present. The original MDRD equation for estimated GFR is not valid for patients less than 18 years of age. Additional information may be found at www.kdoqi.org. 20 Vitamin D deficiency has been defined by the [place] of [employer] and an Endocrine Society practice guideline as a level of serum 25-OH vitamin D less than 20 ng/mL (1,2). The Endocrine Society went on to further define vitamin D insufficiency as a level between 21 and 29 ng/mL (2). 1. IOM ([place] of [employer]). 2010. Dietary reference intakes for calcium and D. [place]: The National Academies Press. 2. Florencio MF, Stefanie NC, Isaias FINK, et al. Evaluation, treatment, and prevention of vitamin D deficiency: an Endocrine Society clinical practice guideline. JCEM. 2010; 96(7):1911-30. Performed at: RN - [facility] [address] [id number] Grease Press Helper: Natalia Joiner MD, Phone: [phone] 21 Note: Persistent reduction for 3 months or more in an eGFR <60 mL/min/1.73 m2 defines CKD. Patients with eGFR values >/=60 mL/min/1.73 m2 may also have CKD if evidence of persistent proteinuria is present. The original MDRD equation for estimated GFR is not valid for patients less than 18 years of age. Additional information may be found at www.kdoqi.org. 22 CYTOLOGY SCREENER - STEAM FITTER SUPERVISOR @ 01/06 Screened by: Leslie Negron SCT(ASCP) PAP: FINAL REPORT SPECIMEN ADEQUACY: SPECIMEN SATISFACTORY FOR INTERPRETATION INTERPRETATION: NEGATIVE FOR INTRAEPITHELIAL LESION OR MALIGNANCY COMMENT: ATROPHIC PATTERN THINPREP PREPARED PAP SLIDE # Prepared in the Cytology laboratory from the ThinPrep sample is 1 ThinPrep smear. PAP ACCESSI QUESTIONNAIRE 12/05 PERTINENT CLINICAL HISTORY FOR PAP (STEAM FITTER SUPERVISOR) CYTOLOGY (Check all that apply): ? N Post ? N Menopause? Y LMP date: 16 YRS Last Pap: at [facility]? Y Abnormal Pap? If Yes, date: If patient had related surgical procedure: Related Therapy: Labor Representative Patient Number: [id number] Significant Clinical History: V76.2 DISCLAIMER: The Pap smear is a screening test and not a diagnostic procedure. False negative and false positive results can and do occur for a number of reasons. Regular screening provides an aid in detecting treatable cervical abnormalities, but should not be used as the only means for detecting cervical dysplasia and carcinoma. Signed Electronically signed LESLIE NEGRON 05/01/14 1345 23 Comments to arbor press operator: PLEASE CALL TO [phone] CALLED VALENTIN Evans AT 1100 09/23/13 by LAB.MYA 24 Comments to arbor press operator: PLEASE CALL TO [phone] CALLED VALENTIN Evans AT 1100 09/23/13 by LAB.MYA 25 Note: Persistent reduction for 3 months or more in an eGFR <60 mL/min/1.73 m2 defines CKD. Patients with eGFR values >/=60 mL/min/1.73 m2 may also have CKD if evidence of persistent proteinuria is present. The original MDRD equation for estimated GFR is not valid for patients less than 18 years of age. Additional information may be found at www.kdoqi.org. 26 01/08/13 [facility] Deleted by [employer] [facility] [place] 27 OPERATION/PROCEDURE Colonoscopy DIAGNOSIS: PART 1: "CECAL POLYP #1, POLYPECTOMY": TUBULAR ADENOMA. PART 2: "CECAL POLYP #2, POLYPECTOMY": ADENOMATOUS COLONIC MUCOSA, FRAGMENTED WITH TUBULAR AND VILLOUS ARCHITECTURE. PART 3: "CECAL POLYP #3, POLYPECTOMY": ADENOMATOUS COLONIC MUCOSA, FRAGMENTED WITH TUBULAR ARCHITECTURE. YEVGENIY/rosemarie GROSS Part 1; "CECAL POLYP, #1". The specimen is received in an appropriately labeled container. This contains one rounded thorpe colored piece of soft tissue measuring up to 0.3 cm.; filtered and submitted in toto within a single cassette. Part 2; "CECAL POLYP #2". The specimen is received in an appropriately labeled container. This contains five rounded thorpe colored pieces of soft tissue measuring up to 0.3 cm.; filtered and submitted in toto within a single cassette. Part 3; "CECAL POLYP #3". The specimen is received in an appropriately labeled container. This contains six rounded thorpe colored pieces of soft tissue measuring up to 0.2 cm.; filtered and submitted in toto within a single cassette. YEVGENIY/rosemarie MICROSCOPIC Part 1: Sections show colonic mucosa with tubular glands lined by columnar cells with elongated and hyperchromatic nuclei. Part 2: Sections show fragmented colonic mucosa with tubular and villous glands lined by columnar cells with elongated and hyperchromatic nuclei. Part 3: Sections show colonic mucosa with tubular glands lined by columnar cells with elongated and hyperchromatic nuclei. PRE OPERATIVE DIAGNOSIS Screening colonoscopy REVIEW CODE CODE: I KVNG Fregoso MD 1301 28 Note: Persistent reduction for 3 months or more in an eGFR <60 mL/min/1.73 m2 defines CKD. Patients with eGFR values >/=60 mL/min/1.73 m2 may also have CKD if evidence of persistent proteinuria is present. The original MDRD equation for estimated GFR is not valid for patients less than 18 years of age. Additional information may be found at www.kdoqi.org. 29 Performed at: [facility] [address] [id number] Grease Press Helper: Mor Nava MD, Phone: [phone] 30 PAP: FINAL REPORT SPECIMEN ADEQUACY: SPECIMEN SATISFACTORY FOR INTERPRETATION <4ml OF SAMPLE REMAINS IN THE THINPREP VIAL INTERPRETATION: NEGATIVE FOR INTRAEPITHELIAL LESION OR MALIGNANCY COMMENT: BENIGN CELLULAR CHANGES ASSOCIATED WITH INFLAMMATION ATROPHIC SMEAR PATTERN THINPREP PREPARED PAP SLIDE # Prepared in the Cytology laboratory from the ThinPrep sample is 1 ThinPrep smear. PAP ACCESSI QUESTIONNAIRE 12/05 PERTINENT CLINICAL HISTORY FOR PAP (STEAM FITTER SUPERVISOR) CYTOLOGY (Check all that apply): ? N Post ? Menopause? N LMP date: If patient had related surgical procedure: Related Therapy: Significant Clinical History: SCREENING DISCLAIMER: The Pap smear is a screening test and not a diagnostic procedure. False negative and false positive results can and do occur for a number of reasons. Regular screening provides an aid in detecting treatable cervical abnormalities, but should not be used as the only means for detecting cervical dysplasia and carcinoma. JOHN Nash 12/28/11 2343 31 12/27/11 LAB.C[facility] Deleted by [employer] [facility] 32 OPERATION/PROCEDURE Removal of skin tag DIAGNOSIS: "SKIN TAG, ABDOMEN": ACRCLEVEON. JW/clf GROSS "SKIN TAG ABDOMEN". The specimen is received in a single container appropriately labeled. This contains a 0.1 cm. shave excision of a similarly sized pink nodule to a depth of 0.1 cm. Painted for orientation but not further sectioned. Submitted within a single cassette. WS/clf MICROSCOPIC Sections show papillary, fibrovascular cores covered by pseudohyperplastic epidermis. No adnexa is seen. PRE OPERATIVE DIAGNOSIS Abdomen skin tag REVIEW CODE CODE: I KVNG Fregoso MD 1345 Procedures Date Code Description Status 08/01/2018 [id number] Mammogram Completed 08/24/2017 [id number] Colonoscopy Completed 04/17/2017 87589 Tympanometry Completed 11/08/2016 59446 Oximetry For Oxygen,Single Determ Completed 06/06/2016 38307 Destruction, Any Method 1 Lesion Completed 06/06/2016 03146 2-14 Lesions Destruction By Any Method Benign Or Completed Premalignant. 06/02/2016 19372 Exc. Lesion Extrem .6 -1.0 CM Completed 10/11/2015 77901 Destruction, Any Method 1 Lesion Completed 05/19/2015 15650 Audiogram, Screen Only Pure Tone Completed 12/25/2014 53274 Repair Complex Wound 2.6-7.5CM Completed FRHD/CHK/CHN/MTH/NK/Ax/Gen/Hand/FT 04/29/2014 08201 Audiogram, Screen Only Pure Tone Completed 01/08/2013 01635 EKG Completed 01/08/2013 25988 Hearing Test Completed 12/27/2011 95015 Snellen Only Vison Completed 12/27/2011 36625 Hearing Test Completed 10/26/2010 54115 Color/Snellen Vision Completed 10/26/2010 49145 Hearing Test Completed 08/22/2006 88813 Destruction, Any Method 1 Lesion Completed 08/22/2006 13880 Exc.Benign Lesion- Over 4.0 CM Completed Encounters Type Date Location Provider Dx Diagnosis Office Visit 09/25/2018 Main Office Yuliana Vargas PA J06.9 Acute upper respiratory 9:15a infection, unspecified J01.90 Acute sinusitis, unspecified Office Visit 07/24/2018 2:15p Main Office Yuliana Vargas PA Z00.01 Encounter for general adult medical exam w abnormal findings Z12.31 Encntr screen mammogram for malignant neoplasm of breast M25.561 Pain in right knee M25.562 Pain in left knee Z78.0 Asymptomatic menopausal state L60.9 Nail disorder, unspecified I10 Essential (primary) hypertension Office Visit 05/07/2018 9:15a Main Office Yuliana Vargas PA I10 Essential ( primary) hypertension J30.9 Allergic rhinitis, unspecified M81.0 Age-related osteoporosis w/o current pathological fracture M79.671 Pain in right foot M19.90 Unspecified osteoarthritis, unspecified site L60.9 Nail disorder, unspecified Office Visit 02/01/2018 9:15a Main Office Yuliana Vargas PA I10 Essential ( primary) hypertension J30.9 Allergic rhinitis, unspecified M81.0 Age-related osteoporosis w/o current pathological fracture Office Visit 10/23/2017 10:00a Main Office Yuliana Vargas PA I10 Essential ( primary) hypertension J30.9 Allergic rhinitis, unspecified Office Visit 08/10/2017 9:15a Main Office Yuliana Vargas PA I10 Essential ( primary) hypertension Office Visit 07/10/2017 1:15p Main Office Yuliana Vargas PA Z00.01 Encounter for general adult medical exam w abnormal findings Z12.31 Encntr screen mammogram for malignant neoplasm of breast I10 Essential (primary) hypertension M79.671 Pain in right foot Office Visit 04/17/2017 9:15a Main Office Deon Anaya J30.9 Allergic rhinitis, M.D. unspecified I10 Essential (primary) hypertension Office Visit 04/02/2017 11:00a Main Office Yuliana Vargas PA J30.9 Allergic rhinitis, unspecified H66.91 Otitis media, unspecified, right ear J01.90 Acute sinusitis, unspecified H10.45 Other chronic allergic conjunctivitis Office Visit 11/08/2016 10:45a Main Office Yuliana Vargas PA J30.9 Allergic rhinitis, unspecified R06.02 Shortness of breath R53.83 Other fatigue R06.83 Snoring Office Visit 05/22/2016 8:30a Main Office Yuliana Vargas PA Z00.01 Encounter for general adult medical exam w abnormal findings L57.0 Actinic keratosis D48.5 Neoplasm of uncertain behavior of skin Z12.31 Encntr screen mammogram for malignant neoplasm of breast M81.0 Age-related osteoporosis w/o current pathological fracture G56.00 Carpal tunnel syndrome, unspecified upper limb I10 Essential (primary) hypertension Z01.411 Encntr for undercutter operator exam (general) (routine) w abnormal findings Office Visit 09/21/2015 9:15a Main Office Yuliana Vargas PA J06.9 Acute upper respiratory infection, unspecified J01.00 Acute maxillary sinusitis, unspecified L57.0 Actinic keratosis Office Visit 05/19/2015 8:30a Main Office Yuliana Vargas PA V70.0 Examination General Medical Routine AT Health Care Facility 110.4 Tinea foot 110.1 Onychomycosis V76.10 Screening For Malignant Neoplasm Breast 401.9 Hypertension Unspec v03.82 Streptococcus Pneumoniae Vaccination Spec Other Office Visit 01/20/2015 10:30a Main Office Yuliana Vargas PA 715.00 Osteoarthrosis Generalized Site Unspec 733.00 Osteoporosis Unspec 724.5 Backache Unspec 401.9 Hypertension Unspec Office Visit 08/03/2014 2:00p Main Office Yuliana Vargas PA 733.90 Bone & Cartilage Disorder Unspec 733.00 Osteoporosis Unspec 715.00 Osteoarthrosis Generalized Site Unspec Office Visit 04/29/2014 10:30a Main Office Yuliana Vargas PA V72.31 Routine Waistline Joiner Examination 278.02 Overweight 692.74 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 Other 401.1 Hypertension Benign V76.2 Screening Malignant Neoplasm Cervix V76.41 Screening Malignant Neoplasm Rectum V76.10 Screening For Malignant Neoplasm Breast V82.81 Special Screening For Osteoporosis 272.4 Hyperlipidemia Other Unspec V72.31 Routine Waistline Joiner Examination V70.0 Examination General Medical Routine AT Health Care Facility Office Visit 10/03/2013 10:30a Main Office Yuliana Vargas PA 478.9 Upper Resp Tract Disease Other & Unspec 461.8 Sinusitis Acute Other 786.2 Cough Office Visit 01/08/2013 8:30a Main Office Chiki 401.1 Hypertension Benign MAIKEL Bridges 715.09 Osteoarthrosis Generalized Multiple Sites 272.4 Hyperlipidemia Other Unspec 599.70 Hematuria, Unspecified V70.0 Examination General Medical Routine AT Health Care Facility v12.72 History Personal Colonic Polyps Office Visit 10/25/2012 9:30a Main Office Yuliana Vargas PA 465.9 URI Upper Respiratory Infections Acute Unspec Sites 786.2 Cough 461.1 Sinusitis Acute Frontal 054.9 Herpes Simplex W/O Complication Office Visit 05/15/2012 10:45a Main Office Deon Anaya, 462 Pharyngitis Acute M.D. Office Visit 02/13/2012 8:45a Main Office Yuliana Vargas PA 466.0 Bronchitis Acute 465.9 URI Upper Respiratory Infections Acute Unspec Sites 786.2 Cough 715.09 Osteoarthrosis Generalized Multiple Sites 401.1 Hypertension Benign Office Visit 12/27/2011 11:20a Main Office Avis Monet.1 Hypertension Benign Ashlee Alcaraz, PROFESSOR OF THEATRE 268.9 Vitamin D Deficiency Unspec V72.31 Routine Waistline Joiner Examination V04.81 Need For Prophylactic Vaccination & Inoculation/Influenza 272.4 Hyperlipidemia Other Unspec Office Visit 12/08/2011 10:45a Main Office Yuliana Vargas PA 465.9 URI Upper Respiratory Infections Acute Unspec Sites 461.9 Sinusitis Acute Unspec Office Visit 04/26/2011 11:00a Main Office Chiki 465.9 URI Upper Ashlee Alcaraz, PROFESSOR OF THEATRE Respiratory Infections Acute Unspec Sites 401.1 Hypertension Benign Office Visit 11/02/2010 2:00p Main Office Chiki, 268.9 Vitamin D Ashlee Alcaraz, PROFESSOR OF [employer]ATRE Deficiency Unspec Office Visit 10/26/2010 9:50a Main Office Chiki V72.31 Routine Waistline Joiner Ashlee Alcaraz, PROFESSOR OF THEATRE Examination V04.81 Need For Prophylactic Vaccination & Inoculation/Influenza V06.1 Nzynlvqgwd-Dixctuz-Ixhgpnpd Combined (DTaP) Office Visit 10/11/2009 1:45p Main Office Yuliana Vargas PA 372.30 Conjunctivitis Unspec Office Visit 01/26/2009 1:00p Main Office Yuliana Vargas PA 386.30 Labyrinthitis Unspec 078.81 Vertigo Epidemic Plan of Treatment Future Appointment(s):10/29/2018 11:15 am - Yuliana Vargas PA at Main [id number] - Yuliana Vargas PAJ06.9 Acute upper respiratory infection, kimmkbqqdzhN02.90 Acute sinusitis, unspecifiedNew Medication:Amoxicillin/Clavulanate Potassium 875 -125 mg - 1 by mouth twice a day with food
--- OUTSIDE RECORDS SUMMARY | 2018-11-12 08:38 | XMS REPORT | Continuity of Care Document ---
:1945 External Reference #:[id number] Author Name Luz Marina Cantu Care Team Providers Name Role Phone Yuliana Vargas PA Primary Care Physician Unavailable Payers Type Date Identification Numbers Payment Provider Subscriber Effective: 2010 Policy Number: [id number] [employer] Cher During Expires: 2011 PayID: [id number] [address] [address] [place] [address] Effective: 2017 Policy Number: [id number] Medicare Blue Ppo Cher During PayID: [id number] [address] [address] [place] [address] Advance Directives Description No Information Available Problems Description No Information Family History Date Family Member(s) Problem(s) Comments General Asthma General Heart Disease General Ovarian Cancer General Carpal Tunnel General cervical cancer-mother Father Asthma Father Heart Disease Mother Ovarian Cancer Social History Type Date Description Comments Sex Unknown Marital Status Lives With Spouse 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 Tobacco Use Start: Unknown Never Smoked Cigarettes Smoking Status Reviewed: 10/14/18 Never Smoked Cigarettes ETOH Use Denies alcohol [...] 1 tab Unknown 0000 daily prn Alendronate // Active Tablets 70mg 1 tab Unknown Sodium 0000 once weekly Calcium 600 + 00// Active Tablets 600-200mg- 1 by Unknown D 0000 Unit mouth daily Metoprolol / Active Tablets ER 25mg 1 by Unknown Succinate ER 0000 24HR mouth every day Multivitamin 00/00/ Active Tablets 1 by Unknown Adults 0000 mouth every day Vitamin B-12 / Hx Injection inject Unknown 0000 - 1000 mcg 2018 by in there office. 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 BMI (Body Mass Index) 31.6 kg/m2 05/08/2018 [...] Available Procedures Date Code Description Status 08/12/2018 53008 Rad Exam; Both Knees, Standing Ap Completed 08/12/2018 36887 Inject/Drain Joint/Bursa Major W/O US Completed 08/16/2017 08639 Rad Exam; Foot Comp Completed 08/16/2017 86386 Rad Exam; Foot Comp Completed 08/15/2017 39067 Rad Exam; Foot Comp Completed 08/15/2017 10583 Rad Exam; Foot Comp Completed 12/07/2010 39953 Rad Exam; Ankle Comp Completed 11/09/2010 21113 CLSD [place] Distal Fib FX (Lateral Malleolus) w/o manipulation Completed Encounters Type Date Location Provider Dx Diagnosis Office Visit 08/12/2018 [facility] Andrews, M17.0 Bilateral primary 10:15a [facility] of [place] knee Office Visit 05/08/2018 [facility] Alexis Rodgers, M19.071 Primary 1:00p [facility] oste[facility], right [place] ankle and foot Office Visit 09/26/2017 [facility] Rodgers, M19.071 Primary 9:15a [facility] osteoarthritis, right [place] ankle and foot Office Visit 08/15/2017 [facility] Alex[facility] Rodgers, M19.071 Primary 1:00p [facility] osteoarthritis, right [place] ankle and foot M19.072 Primary osteoarthritis, left ankle and foot Plan of Treatment Future Appointment(s):10/16/2018 8:15 am - Anay Tracey M.D. at [facility]10/14/2018 - Alexy Andrews, MDM17.0 Bilateral primary osteoarthritis of kneeFollow up:Alexy for right TKA
--- OUTSIDE RECORDS SUMMARY | 2018-11-12 08:38 | XMS REPORT | Continuity of Care Document ---
:1945 External Reference #:[id number] Author Name Yuliana Vargas PA Address [address] [place] [address] Care Team Providers Name Role Phone Deon Anaya M.D. 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 Employment Hand Dominance Right-Handed ETOH Use Never used alcohol Tobacco Use Reviewed: 04/17/17 Patient has never smoked Recreational Drug Use Never Used Drugs Smoking Status Reviewed: 10/29/18 Patient has never smoked Enjoy Exercising active walking Exercise Limitations none Tattoo/Piercing Pierced ears Tattoo/Piercing Negative For Tattoo Allergies, Adverse Reactions, Alerts Description No Known Drug Allergies Medications Medication Date Status Form Strength Qnty SIG Indications Ordering Provider Lisinopril 08/10 Active Tablets 10mg 90tab take [...] Tablets 600-400mg 1 tab by Ang Monet -Unit mouth twice a Ashlee day G., 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 day Amoxicillin/C 09/25 Hx Tablets 875-125mg 20tab 1 by mouth J01.90 Deon lavulanat s twice a day Riley Potassium - with food s, M.D. 10/29 Lisinopril 07/10 Hx Tablets 5mg 90tab 1 by mouth Z00.01 s every day Riley - s MMarcialD. 08/10 Shingles 04/17 Hx Ok to get J30.9 Deon Immunization immunization Riley - at the s, M.D. 07/10 pharmacy Azithromycin 04/02 Hx Tablets 250mg 6tabs 2 tablets day J01.90 one then one Riley - tablet day2 s, M.D. 07/10 thru day Azelastine 04/02 Hx Solution 0.05% 6ml one drop in H10.45 each eye Riley (Ophthalmic) - twice a day s, M.D. 07/10 Zithromax 09/21 Hx Tablets 250mg 6tabs day number J01.00 one two Riley - qd,then s, M.DMarcial 05/22 two thru one pill every day Shingles 06/08 Hx ok to receive Deon Vaccine the vaccine Riley - s M.DMarcial 07/10 Terbinafine 05/19 Hx Tablets 250mg 30tab one every day B35.1 s Riley - s M.DMarcial 05/22 Fosamax 08/03 Hx Tablets 70mg 4tabs 1 tab by M81.0 mouth every Riley - week. take in s, M.D. 05/07 in the morning with 6-8 oz of water and remain upright for 30 minutes Zithromax 10/03 Hx Tablets 250mg 6tabs day number 461.8 Deon Z-Aj one two Riley - tablets then s, M.D. 08/02 day number two thru day number five one qd Metoprolol 01/08 Hx Tablets ER 25mg 45tab / tab by 401.1 Deon Succinate ER 24HR s mouth every Riley - day s, M.D. 05/19 Azithromycin 10/25 Hx Tablets 250mg 6tabs 2 tablets day 461.1 one then one Riley - tablet day2 s, M.DMarcial 01/08 thru day Nasacort Aq 10/23 Hx Aerosol 55mcg/Act 1unit 1 spray each Chiki nostril twice Ashlee - a day MAIKEL Alcaraz 01/08 Zithromax 02/12 Hx Tablets 250mg 6tabs day number 466.0 one two Irley - qd,then s, M.D. 01/08 two thru one pill qd Robitussin 02/12 Hx With 6Oz 1-2 teaspoons 786.2 Deon With Codeine Codeine q 6hours Riley - s, M.D. 01/08 Zithromax 12/08 Hx Tablets 250mg 6tabs day number Deon Z-Aj one two Riley - tablets then s, M.D. 12/27 day number two thru day number five one qd Immunizations CPT Code Status Date Vaccine Reaction Lot # 70669 Given 08/29/2018 Flu High Dose Vaccine 48538 Given 09/08/2017 Flu High Dose HD Flu [id number] p Vaccine 92185 Given 08/22/2016 Flu High Dose Vaccine 79812 Given 08/14/2015 Flu High Dose Vaccine 79382 Given 05/19/2015 Prevnar 13 risk & benefits discussed 00535 Given 08/06/2014 Flu Triv Old Code 81684 Given 09/11/2013 Flu Triv Old Code 15115 Given 09/11/2013 Flu Triv Old Code 81564 Given 11/10/2012 Flu Triv Old Code 44677 Given 12/27/2011 Flu Triv Old Code 63553 Given 10/26/2010 Tdap Vaccine over 7 yrs old 66078 Given 10/26/2010 Flu Triv Old Code Vital Signs Date Vital Result Comment 10/29/2018 11:14am Weight 180.00 lb BP Systolic 126 mmHg BP Diastolic 76 mmHg Height 63 inches 5'3" Body Temperature 97.0 F Respiratory Rate 12 /min BMI (Body Mass Index) 31.9 kg/m2 09/25/2018 9:48am Weight 194.00 lb BP Systolic [...] Result H/L Range Note Laboratory test 06/03/2018 [facility] [address] Fungal Cult SEE RESULT 1, 2 finding [phone] Skin/Hair/Marcy BELOW ls Fungal Culture Id See Comment Abnormal 3 Basic Metabolic Panel 05/03/2018 [facility] Glucose 96 mg/dL N 74- 106 4 [phone] BUN 20 mg/dL High 7-18 Creatinine 0.9 mg/dL N 0.6-1.3 Glom Filtration Rate, Estimate >60 mL/min >60 If >60 mL/min >60 5 BUN/Creat 22.2 ratio Sodium 142 mmol/L N 136-145 Potassium 4.4 mmol/L N 3.5-5.1 Chloride 109 mmol/L High 98-107 Carbon Dioxide 26 mmol/L N 21-32 Anion Gap 7 mEq/L Low 8-16 Calcium 8.4 mg/dL Low 8.5-10.1 CBC Auto Diff 05/03/2018 [facility] White Blood Count 5.1 K/uL N 3.1-10.7 [phone] Red Blood Count 4.31 M/uL N 3.90-5.40 Hemoglobin 12.4 gm/dL N 11.6-15.8 Hematocrit 38.2 % N 36.0-46.1 Mean Cell Volume 88.6 fl N 80.9-99.0 Mean Corpuscular HGB 28.8 pg N 25.9-32.7 Mean Corpuscular HGB Conc 32.5 g/dL N 30.8-34.3 Platelet Count 240 K/uL N 155-360 Red Cell Distri Width SD 44.8 fl N 3-47 Red Cell Distri Width %CV 14.2 % N 11.7-14.4 Mean Platelet Volume 10.1 fL N 8.9-12.4 Neut% 52.0 % N 40.4-72.8 Lymph % 35.9 % N 20.0-42.0 [place] % 8.6 % N 4.3-13.2 Eo% 3.1 % N 0.0-6.6 Bas% 0.4 % N 0.0-1.1 Neut# 2.67 K/uL N 1.8-7.0 Lymph # 1.84 K/uL N 1.0-4.0 [place] # 0.44 K/uL N 0.3-0.9 Eos # 0.16 K/uL N 0.0-0.5 Baso # 0.02 K/uL N 0.0-0.1 Lipid Profile 05/03/2018 [facility] Cholesterol 192 mg/dL <200 6 (Trig/Chol/HDL) [phone] Triglycerides 124 mg/dL <150 7 HDL Cholesterol 40 mg/dL >40 8 LDL-Cholesterol 127 mg/dL < 100 9 Liver Function Panel 05/03/2018 [facility] Total Protein 6.8 g/dL N 6.4-8.2 [phone] Albumin 3.8 g/dL N 3.4-5.0 Globulin 3.0 g/dL N 1.9-4.3 Alb/Glob 1.3 ratio Bilirubin,Total 0.5 mg/dL N 0.2-1.0 Bilirubin,Direct 0.1 mg/dL N 0.0-0.2 Bilirubin,Indirect 0.4 mg/dL N 0.0-0.9 Sgot/Ast 19 U/L N 15-37 SGPT/Alt 27 U/L N 12-78 Alkaline Phosphatase 78 U/L N 45-117 CBS W/Automated Diff 04/25/2017 [facility] White Blood 6.0 K/uL N 3.1-10.7 10 [phone] Count Red Blood Count 4.58 M/uL N 3.90-5.40 Hemoglobin 13.4 gm/dL N 11.6-15.8 Hematocrit 41.1 % N 36.0-46.1 Mean Cell Volume 89.7 fl N 80.9-99.0 Mean Corpuscular HGB 29.3 pg N 25.9-32.7 Mean Corpuscular HGB Conc 32.6 g/dL N 30.8-34.3 Platelet Count 275 K/uL N 150-400 Red Cell Distri Width SD 48.7 fl High 3-47 Red Cell Distri Width %CV 15.1 % High 11.7-14.4 Mean Platelet Volume 10.1 fL N 8.9-12.4 Neut% 67.2 % N 40.4-72.8 Lymph % 22.5 % N 20.0-42.0 [place] % 7.8 % N 4.3-13.2 Eo% 2.2 % N 0.0-6.6 Bas% 0.3 % N 0.0-1.1 Neut# 4.04 K/uL N 1.8-7.0 Lymph # 1.35 K/uL N 1.0-4.0 [place] # 0.47 K/uL N 0.3-0.9 Eos # 0.13 K/uL N 0.0-0.5 Baso # 0.02 K/uL N 0.0-0.1 Laboratory test finding 04/25/2017 [facility] Cea 1.1 ng/mL 11 [phone] Iron-Tibc-%Sat 04/25/2017 [facility] Serum Iron 73 g/dL N 50-170 [phone] Total Iron Binding Capacity 368 g/dL N 250-450 Transferrin %Saturation 20 % N 12-57 Vitamin B12 And Folate 04/25/2017 [facility] Vitamin B12 365 pg/mL N 193-986 [phone] Folic Acid 16.6 ng/mL N 3.1-17.5 Laboratory test finding 04/25/2017 [facility] Ferritin 28 ng/mL N 8 -252 [phone] Comprehensive Metabolic 04/25/2017 [facility] Glucose 91 mg/dL N 74 -106 Panel [phone] BUN 16 mg/dL N 7-18 Creatinine 0.9 mg/dL N 0.6-1.3 Glom Filtration Rate, Estimate >60 mL/min >60 If >60 mL/min >60 12 BUN/Creat 17.7 ratio Sodium 141 mmol/L N 136-145 Potassium 4.3 mmol/L N 3.5-5.1 Chloride 105 mmol/L N 98-107 Carbon Dioxide 29 mmol/L N 21-32 Anion Gap 7 mEq/L Low 8-16 Calcium 8.4 mg/dL Low 8.5-10.1 Total Protein 6.7 g/dL N 6.4-8.2 Albumin 3.7 g/dL N 3.4-5.0 Globulin 3.0 g/dL N 1.9-4.3 Alb/Glob 1.2 ratio Bilirubin,Total 0.8 mg/dL N 0.2-1.0 Sgot/Ast 15 U/L N 15-37 SGPT/Alt 26 U/L N 12-78 Alkaline Phosphatase 80 U/L N 45-117 CBS W/Automated Diff 03/01/2017 [facility] White Blood 5.8 K/uL N 3.1-10.7 13 [phone] Count Red Blood Count 4.28 M/uL N 3.90-5.40 Hemoglobin 12.4 gm/dL N 11.6-15.8 Hematocrit 37.4 % N 36.0-46.1 Mean Cell Volume 87.4 fl N 80.9-99.0 Mean Corpuscular HGB 29.0 pg N 25.9-32.7 Mean Corpuscular HGB Conc 33.2 g/dL N 30.8-34.3 Platelet Count 283 K/uL N 150-400 Red Cell Distri Width SD 47.3 fl High 3-47 Red Cell Distri Width %CV 15.2 % High 11.7-14.4 Mean Platelet Volume 9.9 fL N 8.9-12.4 Neut% 58.0 % N 40.4-72.8 Lymph % 31.6 % N 20.0-42.0 [place] % 7.5 % N 4.3-13.2 Eo% 2.6 % N 0.0-6.6 Bas% 0.3 % N 0.0-1.1 Neut# 3.34 K/uL N 1.8-7.0 Lymph # 1.82 K/uL N 1.0-4.0 [place] # 0.43 K/uL N 0.3-0.9 Eos # 0.15 K/uL N 0.0-0.5 Baso # 0.02 K/uL N 0.0-0.1 Iron-Tibc-%Sat 03/01/2017 [facility] Serum Iron 53 g/dL N 50-170 [phone] Total Iron Binding Capacity 365 g/dL N 250-450 Transferrin %Saturation 15 % N 12-57 Vitamin B12 And Folate 03/01/2017 [facility] Vitamin B12 423 pg/mL N 193-986 [phone] Folic Acid 19.9 ng/mL High 3.1-17.5 Laboratory test 03/01/2017 [facility] Ferritin 79 ng/mL N 8-252 finding [phone] CBS W/Automated 01/31/2017 [facility] White Blood 5.1 K/uL N 3.1- 10.7 14 Diff [phone] Count Red Blood Count 4.50 M/uL N 3.90-5.40 Hemoglobin 12.5 gm/dL N 11.6-15.8 Hematocrit 39.7 % N 36.0-46.1 Mean Cell Volume 88.2 fl N 80.9-99.0 Mean Corpuscular HGB 27.8 pg N 25.9-32.7 Mean Corpuscular HGB Conc 31.5 g/dL N 30.8-34.3 Platelet Count 311 K/uL N 150-400 Red Cell Distri Width SD 45.0 fl N 3-47 Red Cell Distri Width %CV 14.3 % N 11.7-14.4 Mean Platelet Volume 10.1 fL N 8.9-12.4 Neut% 56.5 % N 40.4-72.8 Lymph % 31.2 % N 20.0-42.0 [place] % 8.7 % N 4.3-13.2 Eo% 3.0 % N 0.0-6.6 Bas% 0.6 % N 0.0-1.1 Neut# 2.86 K/uL N 1.8-7.0 Lymph # 1.58 K/uL N 1.0-4.0 [place] # 0.44 K/uL N 0.3-0.9 Eos # 0.15 K/uL N 0.0-0.5 Baso # 0.03 K/uL N 0.0-0.1 Laboratory test 01/31/2017 [facility] Cea 1.1 ng/mL 15 finding [phone] Iron-Tibc-%Sat 01/31/2017 [facility] Serum Iron 46 g/dL Low 50- 170 [phone] Total Iron Binding Capacity 424 g/dL N 250-450 Transferrin %Saturation 11 % Low 12-57 Vitamin B12 And Folate 01/31/2017 [facility] Vitamin B12 349 pg/mL N 193-986 [phone] Folic Acid 16.8 ng/mL N 3.1-17.5 Laboratory test finding 01/31/2017 [facility] Ferritin 11 ng/mL N 8 -252 [phone] Comprehensive Metabolic 01/31/2017 [facility] Glucose 92 mg/dL N 74 -106 Panel [phone] BUN 17 mg/dL N 7-18 Creatinine 1.0 mg/dL N 0.6-1.3 Glom Filtration Rate, Estimate 58 mL/min >60 If >60 mL/min >60 16 BUN/Creat 17.0 ratio Sodium 141 mmol/L N 136-145 Potassium 4.5 mmol/L N 3.5-5.1 Chloride 107 mmol/L N 98-107 Carbon Dioxide 27 mmol/L N 21-32 Anion Gap 7 mEq/L Low 8-16 Calcium 8.5 mg/dL N 8.5-10.1 Total Protein 6.9 g/dL N 6.4-8.2 Albumin 3.6 g/dL N 3.4-5.0 Globulin 3.3 g/dL N 1.9-4.3 Alb/Glob 1.1 ratio Bilirubin,Total 0.9 mg/dL N 0.2-1.0 Sgot/Ast 18 U/L N 15-37 SGPT/Alt 25 U/L N 12-78 Alkaline Phosphatase 77 U/L N 45-117 Laboratory test 08/03/2016 [facility] Thyroid Stim 2.06 uIU/mL N 0.30-4.20 17 finding [phone] Hormone Laboratory test 06/05/2016 [facility] Skin Biopsy See Note 18 finding [phone] Basic Metabolic 06/01/2016 [facility] Glucose 105 mg/dL 74-106 Panel [phone] BUN 15 mg/dL 7-18 Creatinine 0.9 mg/dL 0.6-1.3 Glom Filtration Rate, Estimate >60 mL/min >60 If >60 mL/min >60 19 BUN/Creat 16.6 ratio Sodium 143 mmol/L 136-145 Potassium 4.1 mmol/L 3.5-5.1 Chloride 111 mmol/L High 98-107 Carbon Dioxide 26 mmol/L 21-32 Anion Gap 6 mEq/L Low 8-16 Calcium 8.5 mg/dL 8.5-10.1 CBC W/Automated Diff 06/01/2016 [facility] White Blood 4.7 K/uL 3.1-10.7 [phone] Count Red Blood Count 4.27 M/uL 3.90-5.40 [...] % 40.4-72.8 Lymph % 28.7 % 17.0-46.1 [place] % 7.9 % 4.3-13.2 Eo% 3.0 % 0.0-6.6 Bas% 0.4 % 0.0-1.1 Neut# 2.82 K/uL 1.8-7.0 Lymph # 1.35 K/uL Low 1.8-7.0 [place] # 0.37 K/uL 0.3-0.9 Eos # 0.14 K/uL 0.0-0.5 Baso # 0.02 K/uL 0.0-0.1 Liver Function Tests 06/01/2016 [facility] Total Protein 6.9 g/dL 6.4-8.2 [phone] Albumin 3.7 g/dL 3.4-5.0 Globulin 3.2 g/dL 1.9-4.3 Alb/Glob 1.2 ratio Bilirubin,Total 0.8 mg/dL 0.2-1.0 Bilirubin,Direct 0.2 mg/dL 0.0-0.2 Bilirubin,Indirect 0.6 mg/dL 0.0-0.9 Sgot/Ast 16 U/L 15-37 SGPT/Alt 31 U/L 12-78 Alkaline Phosphatase 79 U/L 45-117 Laboratory 06/01/2016 [facility] Vitamin 26.8 Low 30.0-100.0 20 test finding [phone] D,25-Hydroxy ng/mL Liver Function 08/07/2015 [facility] Total Protein 6.8 g/dL 6.4- 8.2 Tests [phone] Albumin 3.2 g/dL Low 3.4-5.0 Globulin 3.6 g/dL 1.9-4.3 Alb/Glob 0.9 ratio Bilirubin,Total 0.4 mg/dL 0.2-1.0 Bilirubin,Direct < 0.1 mg/dL 0.0-0.2 Bilirubin,Indirect 0.3 mg/dL 0.0-0.9 Sgot/Ast 16 U/L 15-37 SGPT/Alt 27 U/L 12-78 Alkaline Phosphatase 79 U/L 45-117 Liver Function Tests 06/18/2015 [facility] Total Protein 6.9 g/dL 6.4-8.2 [phone] Albumin 3.7 g/dL 3.4-5.0 Globulin 3.2 g/dL 1.9-4.3 Alb/Glob 1.2 ratio Bilirubin,Total 0.8 mg/dL 0.2-1.0 Bilirubin,Direct 0.1 mg/dL 0.0-0.2 Bilirubin,Indirect 0.7 mg/dL 0.0-0.9 Sgot/Ast 17 U/L 15-37 SGPT/Alt 28 U/L 12-78 Alkaline Phosphatase 86 U/L 45-117 CBS W/Automated Diff 06/18/2015 [facility] White Blood 4.6 K/uL 3.1-10.7 [phone] Count Red Blood Count 4.47 M/uL 3.90-5.40 [...] % 40.4-72.8 Lymph % 31.9 % 17.0-46.1 [place] % 7.2 % 4.3-13.2 Eo% 3.0 % 0.0-6.6 Bas% 0.4 % 0.0-1.1 Neut# 2.65 K/uL 1.0-7.0 Lymph # 1.47 K/uL Low 1.8-7.0 [place] # 0.33 K/uL 0.3-0.9 Eos # 0.14 K/uL 0.0-0.5 Baso # 0.02 K/uL 0.0-0.1 Xray 06/02/2015 [facility] bilateral <pending> [address] [place] [address] mammogram [phone] Basic Metabolic 04/30/2014 [facility] Glucose 102 mg/dL 76-115 Panel [phone] BUN 19 mg/dL 5-23 Creatinine 0.9 mg/dL 0.5-1.4 Glom Filtration Rate, Estimate >60 mL/min >60 If >60 mL/min >60 21 BUN/Creat 21.1 ratio Sodium 139 mmol/L 136-145 Potassium 4.1 mmol/L 3.5-5.1 Chloride 107 mmol/L 98-107 Carbon Dioxide 28 mEq/L 18-29 Anion Gap 8 mEq/L 8-16 Calcium 8.5 mg/dL 8.5-10.1 CBS W/Automated Diff 04/30/2014 [facility] White Blood 5.3 K/uL 3.1-10.7 [phone] Count Red Blood Count 4.33 M/uL 3.90-5.40 [...] % 40.4-72.8 Lymph % 33.3 % 17.0-46.1 [place] % 7.7 % 4.3-13.2 Eo% 2.4 % 0.0-6.6 Bas% 0.4 % 0.0-1.1 Neut# 2.98 K/uL 1.0-7.0 Lymph # 1.77 K/uL 0.8-3.4 [place] # 0.41 K/uL 0.3-0.9 Eos # 0.13 K/uL 0.0-0.5 Baso # 0.02 K/uL 0.0-0.1 LDL Cholesterol Profile 04/30/2014 [facility] Cholesterol 187 mg/dL 120-200 [phone] Triglycerides 102 mg/dL 16-231 HDL Cholesterol 38 mg/dL 29-83 LDL-Cholesterol 129 mg/dL 62-185 Liver Function Tests 04/30/2014 [facility] Total Protein 6.5 g/dL 6.3-8.0 [phone] Albumin 3.5 g/dL 3.5-5.0 Globulin 3.0 g/dL 1.9-4.3 Alb/Glob 1.2 ratio Bilirubin,Total 0.6 mg/dL 0.2-1.2 Bilirubin,Direct 0.1 mg/dL 0.1-0.4 Bilirubin,Indirect 0.5 mg/dL 0.0-0.9 Sgot/Ast 18 U/L 16-40 SGPT/Alt 29 U/L Low 30-65 Alkaline Phosphatase 101 U/L 50-136 Laboratory test 04/29/2014 [facility] ThinPrep Pap: See Note 22 finding [phone] Cervix/Endocx Laboratory test 09/23/2013 [facility] BUN 14 mg/dL 5-23 23 finding [phone] Creatinine 0.9 mg/dL 0.5-1.4 24 Xray 01/16/2013 [facility] [address] Mammography, <pending> [address] [place] [address] [phone] Xray 01/16/2013 [facility] [address] [place] [address] sonogram kidneys <pending> [address] [place] [address] [phone] Basic Metabolic 01/14/2013 [facility] Glucose 106 mg/dL 76-115 Panel [phone] BUN 18 mg/dL 5-23 Creatinine 1.0 mg/dL 0.5-1.4 Glom Filtration Rate, Estimate 59 mL/min >60 If >60 mL/min >60 25 BUN/Creat 18.0 ratio Sodium 143 mmol/L 136-145 Potassium 4.3 mmol/L 3.5-5.1 Chloride 109 mmol/L High 98-107 Carbon Dioxide 29 mEq/L 18-29 Anion Gap 9 mEq/L 8-16 Calcium 8.8 mg/dL 8.5-10.1 General Health 01/14/2013 [facility] Thyroid Stim 1.56 uIU/mL 0.49 -4.67 Panel/CBS [phone] Hormone LDL Cholesterol 01/14/2013 [facility] Cholesterol 186 mg/dL 120- 200 Profile [phone] Triglycerides 94 mg/dL 16-231 HDL Cholesterol 35 mg/dL 29-83 LDL-Cholesterol 132 mg/dL 62-185 CBS W/Automated Diff 01/14/2013 [facility] White Blood 5.6 K/uL 3.1-10.7 [phone] Count Red Blood Count 4.22 M/uL 3.90-5.40 [...] % 40.4-72.8 Lymph % 27.6 % 17.0-46.1 [place] % 8.4 % 4.3-13.2 Eo% 3.0 % 0.0-6.6 Bas% 0.5 % 0.0-1.1 Neut# 3.37 K/uL 1.0-7.0 Lymph # 1.54 K/uL 0.8-3.4 [place] # 0.47 K/uL 0.3-0.9 Eos # 0.17 K/uL 0.0-0.5 Baso # 0.03 K/uL 0.0-0.1 Laboratory test 01/08/2013 [facility] Urine Screen See Note 26 finding [phone] Microalb/Creat 01/08/2013 [facility] Microalbumin,Ur 10.8 mg/L 0.0 -18.5 Ratio,Random [phone] [phone] Microalbumin/Creatinine Ratio 5.7 ug/mgCrt 0.0-30.0 Urine Creatinine Conc 190 mg/dL Urinalysis With 01/08/2013 [facility] Urine Color YELLOW Yellow Microscopic [phone] Urine Clarity CLEAR Clear Urine Glucose - Dipstick NEGATIVE mg/dL Negative Urine Bilirubin - Dipstick NEGATIVE Negative Urine Ketone NEGATIVE mg/dL Negative Urine Specific Latty >=1.030 1.010-1.030 Urine Blood SMALL High Negative Urine PH 5.5 Low 6.5-7.5 Urine Protein - Dipstick NEGATIVE mg/dL Negative Urine Urobilinogen - Dipstick 0.2 E.U./dL 0.2-1.0 Urine Nitrite - Dipstick NEGATIVE Negative Urine Leuk Esterase TRACE High Negative Urine RBC 0-2 rbc/hpf 0-7 Urine WBC 2-5 wbc/hpf 0-7 Urine Epithelial Cells VERY FEW NONESEEN/lpf Urine Mucus SMALL NONESEEN Laboratory test 08/23/2012 [facility] Polyp Colon See Note 27 finding [phone] And/Or Rectum CBC W/Automated 01/04/2012 [facility] White Blood 5.6 K/uL 3.1- 10.7 Diff [phone] Count Red Blood Count 4.36 M/uL 3.90-5.40 [...] % 40.4-72.8 Lymph % 32.4 % 17.0-46.1 [place] % 9.9 % 4.3-13.2 Eo% 3.2 % 0.0-6.6 Bas% 0.4 % 0.0-1.1 Neut# 3.00 K/uL 1.0-7.0 Lymph # 1.80 K/uL 0.8-3.4 [place] # 0.55 K/uL 0.3-0.9 Eos # 0.18 K/uL 0.0-0.5 Baso # 0.02 K/uL 0.0-0.1 Laboratory test 01/04/2012 [facility] Thyroid Stim 2.54 uIU/mL 0.49-4.67 finding [phone] Hormone Comprehensive 01/04/2012 [facility] Glucose 98 mg/dL 76-115 Metabolic Panel [phone] BUN 17 mg/dL 5-23 Creatinine 1.0 mg/dL [...] Phosphatase 98 U/L 50-136 Laboratory test 01/04/2012 [facility] Vitamin D,1,25 32.8 pg/mL 10.0-75.0 29 finding [phone] Dihydroxy Laboratory test 12/27/2011 [facility] ThinPrep Pap: See Note 30 finding [phone] Cervix/Endocx Urinalysis With 12/27/2011 [facility] Urine Color YELLOW Yellow Microscopic [phone] Urine Clarity CLEAR Clear Urine Glucose - Dipstick NEGATIVE mg/dL Negative Urine Bilirubin - Dipstick NEGATIVE Negative Urine Ketone NEGATIVE mg/dL Negative Urine Specific Latty 1.025 1.010-1.030 Urine Blood TRACE Negative Urine [...] Sediment SMALL Negative Laboratory test finding 12/27/2011 [facility] Urine Screen See Note 80 [phone] Laboratory test finding 12/27/2011 [facility] Skin Tag See Note 57 [phone] 1 [id number] 2 SEE RESULT BELOW Name: CHER HANNA : [address]: Yuliana SALINAS Acct: [id number] Unit: [id number] AGE: 73 Location: [facility] Re06/03/18 SEX: F Status: REG REF SPEC: [id number] DEBBY: 06/03/18-[address]: Yuliana SALINAS REQ: [id number] RECD: 06/03/18 STATUS: COMP _ SOURCE: TOENAIL SPDESC: ORDERED: Fungal Cult Analilia COMMENTS: [id number] Procedure Result Reported Site Fungal Cult Skin/Hair/Nails Final 07/01/18- 1300 ML Organism 1 MOLD Referred Specimen Isolate sent to [facility] for Identification Organism 2 MOLD#2 Referred Specimen Isolate sent to [facility] for Identification * ML - Main Lab . END OF REPORT DEPARTMENT OF PATHOLOGY, [address] [place] [address] Mahad Hudson M.D. Director [facility] # [id number] SOURCE: TOE NAIL CULTURE REFERRED FOR ID, FUNGUS FINAL YEAST or FILAMENTOUS FUNGUS Unable to identify. Organism not viable. Result delayed: organism grows poorly or was received in mixture. Test Performed by: [facility] - [address] [address] 4 J30.9 M19.90 I10 M81.0 5 Note: [...] assay methods cannot be used interchangeably. Method: [employer] [place] Chemiluminescent Immunoassay 12 Note: Persistent reduction for [...] assay methods cannot be used interchangeably. Method: [employer] Chemiluminescent Immunoassay 16 Note: Persistent reduction for [...] inked, bisected and submitted entirely, one cassette. CC/clf PRE OPERATIVE DIAGNOSIS Neoplasm, right upper arm. REVIEW CODE CODE: I Signed Electronically signed Tess RODRIGUEZ MD [id number] Note: Persistent reduction for 3 months [...] D deficiency has been defined by the [place] [employer] and an Endocrine Society practice guideline as a level of serum 25-OH vitamin D less than 20 ng/mL (1,2). The Endocrine Society went on to further define vitamin D insufficiency as a level between 21 and 29 ng/mL (2). 1. IOM ([place] of [employer]). 2010. Dietary reference intakes for calcium and D. [place]: The National Academies Press. 2. Florencio MF, Stefanie NC, Isaias FINK, et al. Evaluation, treatment, and prevention of vitamin D deficiency: an Endocrine Society clinical practice guideline. JCEM. 2010; 96(7):1911-30. Performed at: RN - [facility] [address] [id number] Manager Protein: Natalia Joiner MD, Phone: [phone] Note: Persistent reduction for 3 months [...] found at [email or web address]. 22 CYTOLOGY SCREENER - CLINICAL MEDICAL TRANSCRIPTIONIST @ 01/06 Screened by: Leslie Negron SCT(ASCP) PAP: FINAL REPORT SPECIMEN ADEQUACY: SPECIMEN SATISFACTORY FOR INTERPRETATION INTERPRETATION: NEGATIVE FOR INTRAEPITHELIAL LESION OR MALIGNANCY COMMENT: ATROPHIC PATTERN THINPREP PREPARED PAP SLIDE # Prepared in the Cytology laboratory from the ThinPrep sample is 1 ThinPrep smear. PAP ACCESSI QUESTIONNAIRE 12/05 PERTINENT CLINICAL HISTORY FOR PAP (CLINICAL MEDICAL TRANSCRIPTIONIST) CYTOLOGY (Check all that apply): ? N Post ? N Menopause? Y LMP date: 16 YRS Last Pap: at [facility]? Y Abnormal Pap? If Yes, date: If patient had related surgical procedure: Related Therapy: Back Sewer Patient Number: [id number] Significant Clinical History: V76.2 DISCLAIMER: The Pap [...] LESLIE NEGRON 05/01/14 1345 23 Comments to obstetrics gynecology md: PLEASE CALL TO [phone] CALLED VALENTIN Evans AT 1100 09/23/13 by CALEB 24 Comments to obstetrics gynecology md: PLEASE CALL TO 1971 CALLED VALENTIN Evans AT 1100 09/23/13 by [email or web address] 25 Note: Persistent reduction for 3 months or more in an eGFR <60 mL/min/1.73 m2 defines CKD. Patients with eGFR values >/=60 mL/min/1.73 m2 may also have CKD if evidence of persistent proteinuria is present. The original MDRD equation for estimated GFR is not valid for patients less than 18 years of age. Additional information may be found at [email or web address]. 26 01/08/13 [email or web address] Deleted by [facility] [place] 27 OPERATION/PROCEDURE Colonoscopy DIAGNOSIS: PART 1: "CECAL POLYP #1, POLYPECTOMY": TUBULAR ADENOMA. PART 2: "CECAL POLYP #2, POLYPECTOMY": ADENOMATOUS COLONIC MUCOSA, FRAGMENTED WITH TUBULAR AND VILLOUS ARCHITECTURE. PART 3: "CECAL POLYP #3, POLYPECTOMY": ADENOMATOUS COLONIC MUCOSA, FRAGMENTED WITH TUBULAR ARCHITECTURE. Esthela GROSS Part 1; "CECAL POLYP, #1". The [...] be found at [email or web address]. 29 Performed at: [facility] [id number] Manager Protein: Mor Nava MD, Phone: [phone] PAP: FINAL REPORT SPECIMEN ADEQUACY: SPECIMEN SATISFACTORY FOR INTERPRETATION <4ml OF SAMPLE REMAINS IN THE THINPREP VIAL INTERPRETATION: NEGATIVE FOR INTRAEPITHELIAL LESION OR MALIGNANCY COMMENT: BENIGN CELLULAR CHANGES ASSOCIATED WITH INFLAMMATION ATROPHIC SMEAR PATTERN THINPREP PREPARED PAP SLIDE # Prepared in the Cytology laboratory from the ThinPrep sample is 1 ThinPrep smear. PAP ACCESSI QUESTIONNAIRE 12/05 PERTINENT CLINICAL HISTORY FOR PAP (CLINICAL MEDICAL TRANSCRIPTIONIST) CYTOLOGY (Check all that apply): ? N [...] dysplasia and carcinoma. JOHN Nash 12/28/11 2343 12/27/11 LAB.CBL Deleted by Reflex Group [facility] [place] [facility] OPERATION/PROCEDURE Removal of skin tag DIAGNOSIS: "SKIN TAG, ABDOMEN": KARON. YEVGENIY/jadaf GROSS "SKIN TAG ABDOMEN". The specimen is [...] Abdomen skin tag REVIEW CODE CODE: I Signed KVNG CALDERON MD 1345 Procedures Date Code Description Status 10/29/2018 48709 EKG Completed 08/01/2018 69549940 Mammogram Completed 08/24/2017 18311684 Colonoscopy Completed 04/17/2017 44110 Tympanometry Completed 11/08/2016 67241 Oximetry For Oxygen,Single Determ Completed 06/06/2016 39858 Destruction, Any Method 1 Lesion Completed 06/06/2016 28960 2-14 Lesions Destruction By Any Method Benign Or Completed Premalignant. 06/02/2016 58525 Exc. Lesion Extrem .6 -1.0 CM Completed 10/11/2015 77469 Destruction, Any Method 1 Lesion Completed 05/19/2015 98425 Audiogram, Screen Only Pure Tone Completed 12/25/2014 84460 Repair Complex Wound 2.6-7.5CM Completed FRHD/CHK/CHN/MTH/NK/Ax/Gen/Hand/FT 04/29/2014 37786 Audiogram, Screen Only Pure Tone Completed 01/08/2013 82874 EKG Completed 01/08/2013 30622 Hearing Test Completed 12/27/2011 24107 Snellen Only Vison Completed 12/27/2011 46269 Hearing Test Completed 10/26/2010 07899 Color/Snellen Vision Completed 10/26/2010 07219 Hearing Test Completed 08/22/2006 09112 Destruction, Any Method 1 Lesion Completed 08/22/2006 51807 Exc.Benign Lesion- Over 4.0 CM Completed Encounters Type Date Location Provider Dx Diagnosis Office Visit 10/29/2018 Main Office Yuliana Vargas PA M17.0 Bilateral primary 11:15a osteoarthritis of knee M25.561 Pain in right knee I10 Essential (primary) hypertension J30.9 Allergic rhinitis, unspecified 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 Office Visit 09/25/2018 9:15a Main Office Yuliana Vargas PA J06.9 Acute upper respiratory infection, unspecified J01.90 Acute sinusitis, unspecified Office [...] I10 Essential (primary) hypertension Z01.411 Encntr for nitrocellulose operator exam (general) (routine) w abnormal findings [...] Main Office Yuliana Vargas PA 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 278.02 Overweight 692.74 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 Other 401.1 Hypertension Benign V76.2 Screening Malignant Neoplasm Cervix V76.41 Screening Malignant Neoplasm Rectum V76.10 Screening For Malignant Neoplasm Breast V82.81 Special Screening For Osteoporosis 272.4 Hyperlipidemia Other Unspec 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 V70.0 Examination General Medical Routine AT Health Care Facility Office Visit 10/03/2013 10:30a Main Office Yuliana Vargas PA 478.9 Upper Resp Tract Disease Other & Unspec 461.8 Sinusitis Acute Other 786.2 Cough Office Visit 01/08/2013 8:30a Main Office Ch[place], 401.1 Hypertension Benign Ashlee G., SENIOR INTEGRATION DEVELOPER 715.09 Osteoarthrosis Generalized Multiple Sites 272.4 Hyperlipidemia [...] Benign Office Visit 12/27/2011 11:20a Main Office [place], 401.1 Hypertension Benign Ashlee G., SENIOR INTEGRATION DEVELOPER 268.9 Vitamin D Deficiency Unspec 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 V04.81 Need For Prophylactic Vaccination & Inoculation/Influenza 272.4 Hyperlipidemia Other Unspec Office Visit 12/08/2011 10:45a Main Office Yuliana Vargas PA 465.9 URI Upper Respiratory Infections Acute Unspec Sites 461.9 Sinusitis Acute Unspec Office Visit 04/26/2011 11:00a Main Office [place], 465.9 URI Upper Ashlee G., SENIOR INTEGRATION DEVELOPER Respiratory Infections Acute Unspec Sites 401.1 Hypertension Benign Office Visit 11/02/2010 2:00p Main Office [place], 268.9 Vitamin D Ashlee G., SENIOR INTEGRATION DEVELOPER Deficiency Unspec Office Visit 10/26/2010 9:50a Main Office [place] 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 Ashlee G., SENIOR INTEGRATION DEVELOPER Examination V04.81 Need For Prophylactic Vaccination & Inoculation/Influenza V06.1 Fvilzdqozk-Jmazcwb-Jytguwls Combined (DTaP) Office Visit 10/11/2009 1:45p Main Office Yuliana Vargas PA 372.30 Conjunctivitis Unspec Office Visit 01/26/2009 1:00p Main Office Yuliana Vargas PA 386.30 Labyrinthitis Unspec 078.81 Vertigo Epidemic Plan of Treatment Future Appointment(s):01/27/2019 10:00 am - Wolak, Yuliana, PA at Main [id number] 9:30 am - Yuliana Vargas PA at Main [id number]/29/2018 - Yuliana Vargas, PAM17.0 Bilateral primary osteoarthritis of kneeM25.561 Pain in right kneeI10 Essential (primary) mdjfnhembpmiJ80.9 Allergic rhinitis, lyeplisdvgdS11.4 Malignant neoplasm of transverse colon
--- OUTSIDE RECORDS SUMMARY | 2018-11-12 08:38 | XMS REPORT | Continuity of Care Document ---
:1945 External Reference #:[id number] Author Name Amaya Munguia Care Team Providers Name Role Phone Yuliana Vargas PA Primary Care Physician Unavailable Payers Type Date Identification Numbers Payment Provider Subscriber Effective: 2010 Policy Number: [id number] BS Facets Cher During Expires: 2011 PayID: [id number] [address] [address] [place] [address] Effective: 2017 Policy Number: [id number] Medicare Blue Ppo Cher During PayID: [id number] [address] [address] [place] [address] Advance Directives Description No Information Available Problems [...] Unknown Never Smoked Cigarettes Smoking Status Reviewed: 10/16/18 Never Smoked Cigarettes ETOH Use Denies alcohol [...] Adults 0000 mouth every day Vitamin B-12 00/ Hx Injection inject Unknown 0000 - 1000 [...] Available Vital Signs Date Vital Result Comment 10/16/2018 8:22am Height 65 inches 5'5" Weight [...] 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 BMI (Body Mass Index) 31.6 kg/m2 05/08/2018 [...] Available Procedures Date Code Description Status 08/12/2018 03351 Rad Exam; Both Knees, Standing Ap Completed 08/12/2018 80415 Inject/Drain Joint/Bursa Major W/O US Completed 08/16/2017 54202 Rad Exam; Foot Comp Completed 08/16/2017 82974 Rad Exam; Foot Comp Completed 08/15/2017 29833 Rad Exam; Foot Comp Completed 08/15/2017 14065 Rad Exam; Foot Comp Completed 12/07/2010 01545 Rad Exam; Ankle Comp Completed 11/09/2010 89219 CLSD TX Distal Fib FX (Lateral Malleolus) w/o manipulation Completed Encounters Type Date Location Provider Dx Diagnosis Office Visit 08/12/2018 Orthopedic Alexy Andrews, M17.0 Bilateral primary 10:15a [facility] osteoarthritis of AT [place] knee Office Visit 05/08/2018 Orthopedic Alexis Rodgers M19.071 Primary 1:00p [facility] osteoarthritis, right AT [place] ankle and foot Office Visit 09/26/2017 Orthopedic Alexis Rodgers M19.071 Primary 9:15a [facility] osteoarthritis, right AT [place] ankle and foot Office Visit 08/15/2017 Orthopedic Alexis Rodgers M19.071 Primary 1:00p [facility] osteoarthritis, right AT [place] ankle and foot M19.072 Primary osteoarthritis, left ankle and foot Plan of Treatment Future Appointment(s):10/30/2018 8:30 am - Anay Tracey M.D. at [facility]10/16/2018 - Anay Tracey M.D.M17.0 Bilateral primary osteoarthritis of kneeFollow up:Follow up: 7-10 days before gfrvdkiT59.561 Pain in right kneeNew Xrays:Knee 3 Views RT, Ordered: 10/16/18M25.562 Pain in left knee
[2018-11-12] MEDS ORDERED: Famotidine IV* 10 MG/ML 2 ML (20 mg) ONE (08:49)
[2018-11-12] MEDS ORDERED: Dexamethasone IV* 4 MG/ML 1 ML (4 MG) ONE (08:49)
[2018-11-12] MEDS ORDERED: ceFAZolin 2 GM PREMIX in ORs 2 GM/50 ML BAG IVPB ONE (08:49)
[2018-11-12] MEDS ORDERED: Lidocaine 2% PF * 5 ML VIAL ONE (09:12)
[2018-11-12] MEDS ORDERED: fentaNYL* 50 MCG/ML 2 ML VIAL (100 MCG VIAL) ONE (09:12)
[2018-11-12] MEDS ORDERED: Propofol* 10 MG/ML 20 ML BTL ONE ×2 (09:12→13:18)
[2018-11-12] MEDS ORDERED: Midazolam* 1 MG/ML 2 ML VIAL (2 MG) ONE (09:12)
[2018-11-12] MEDS ORDERED: Bupivacaine 0.5% PF 10 ML VIAL INJ ONE (10:25)
[2018-11-12] MEDS ORDERED: ROPIVACAINE 5 MG/ML 30 ML BTL (0.5%) ONE (10:44)
[2018-11-12] MEDS ORDERED: Lidocaine 1%* 5 ML VIAL ONE (10:44)
[2018-11-12] MEDS ORDERED: Bupivacaine-MPF SPINAL* 7.5 MG/ML - 2ML AMP ONE (12:04)
[2018-11-12] MEDS ORDERED: Propofol* 500 MG/50 ML BTL ONE (12:04)
[2018-11-12] MEDS ORDERED: Naloxone* 0.4 MG/ML 1 ML VIAL IV PRN (13:06)
[2018-11-12] MEDS ORDERED: fentaNYL* 50 MCG/ML 2 ML VIAL (100 MCG VIAL) IV PRN (13:06)
[2018-11-12] MEDS ORDERED: Ketorolac INJ* 30 MG/ML 1 ML VIAL IV PRN (13:06)
[2018-11-12] MEDS ORDERED: Morphine VIAL* 4 MG/ML VIAL (1 ml vial) IV PRN ×2 (13:06→13:50)
[2018-11-12] MEDS ORDERED: Ondansetron INJ* 2 MG/ML VIAL IV PRN (13:06)
[2018-11-12] MEDS ORDERED: oxyCODONE/Acetamin 5/325 MG* TAB PO PRN ×2 (13:06→13:50)
[2018-11-12] MEDS ORDERED: Acetaminophen IV 1GM/100ML * 1,000 MG/100 ML VIAL IVPB ONE (13:06)
[2018-11-12] MEDS ORDERED: Cyclobenzaprine TAB* 10 MG PO PRN (13:50)
[2018-11-12] MEDS ORDERED: Polyethylene Glycol 3350* 17 GM PACKET PO PRN (13:50)
[2018-11-12] MEDS ORDERED: diPHENhydraMINE IV* 50 MG/ML 1 ml VIAL (BENADRYL) IV PRN (13:50)
[2018-11-12] MEDS ORDERED: traMADol TAB* 50 MG PO PRN (13:50)
[2018-11-12] MEDS ORDERED: Magnesium Hydroxide LIQ* 30 ML UDC PO PRN (13:50)
[2018-11-12] MEDS ORDERED: Bisacodyl SUPP* 10 MG SUPP PR PRN (13:50)
[2018-11-12] MEDS ORDERED: Lactated Ringers 1000 ML Bag* 1,000 ML IV SCH (14:00)
[2018-11-12] MEDS: oxyCODONE/Acetamin 5/325 MG* TAB PO PRN ×2 (15:36→19:57)
[2018-11-12] MEDS: Acetaminophen TAB* 325 MG PO SCH ×2 (15:36→23:59)
--- NOTE | 2018-11-12 15:57 | PN ---
Progress Note - Progress Note Date of Service: 11/12/18 Note: Patient seen on POD 0 sp RTK arthroplasty. She feels well with well controlled pain. Denies CP, SOB, dizziness, nausea. DF/PF intact, DP2+, sensation intact to light touch distally.
[2018-11-12] MEDS: Ondansetron INJ* 2 MG/ML VIAL IV PRN (16:43)
[2018-11-12] MEDS: oxyCODONE TAB* 5 MG TAB PO PRN ×3 (16:44→23:55)
[2018-11-12] MEDS ORDERED: Warfarin TAB(*) 6 MG PO ONE (17:00)
[2018-11-12] MEDS: Docusate CAP* 100 MG PO SCH (19:57)
[2018-11-12] MEDS: Magnesium Hydroxide LIQ* 30 ML UDC PO SCH (19:59)
--- NOTE | 2018-11-12 19:59 | CONS ---
CC: Dr. Tracey; Dr. Anaya * CONSULTATION REPORT: DATE OF CONSULT: 11/12/18 PRIMARY CARE PROVIDER: Dr. Anaya. REQUESTING PHYSICIAN: Dr. Tracey. REASON FOR CONSULT: Postoperative management of patient status post right total knee arthroplasty with hypertension. CHIEF COMPLAINT: Status post right knee surgery. HISTORY OF PRESENT ILLNESS: Ms. Villar is a 73-year-old female with a history of hypertension and colon cancer, who is status post right knee arthroplasty performed by Dr. Tracey. She was seen postoperatively in her room on surgical unit. She is doing very well. She complains of no postoperative pain. A consultation was requested in regards to management of the patient's hypertension. PAST MEDICAL HISTORY: 1. Hypertension. 2. Osteoporosis. 3. History of colon cancer, status post resection and no further need of treatment remotely. PAST SURGICAL HISTORY: 1. Oophorectomy. 2. Deviated septum surgery. 3. Carpal tunnel release. 4. History of colon resection. 5. Tonsillectomy. MEDICATIONS: At home include: 1. Lisinopril 5 mg daily. 2. Fluticasone nasal spray. 3. Claritin 10 mg daily. 4. Fosamax 70 mg weekly. 5. Calcium with vitamin D one tablet daily. 6. Metoprolol succinate 25 mg daily. 7. Multivitamin 1 tablet daily. ALLERGIES: No known drug allergies. FAMILY HISTORY: The patient's mother had ovarian cancer many years ago that was resected. The patient's mother is now 96 years old and doing well. The patient's father has no significant past medical history and is currently 99 years old and well. SOCIAL HISTORY: The patient lives with her who is her surrogate. She is retired. She has no history of alcohol, tobacco, or drug use. REVIEW OF SYSTEMS: Please see history of present illness. In addition to the above mentioned, the patient has no postoperative pain. She is doing well. She is beginning to have diet advanced from clears to regular. All the remaining 12 systems were reviewed with the patient and were otherwise negative. PHYSICAL EXAM: Blood pressure of 154/75, heart rate of 60 and regular, respiratory rate 16, oxygen saturation 100% on room air, temperature of 97.0. General: The patient is a very pleasant 73-year-old female, who is in no acute distress. Alert, awake, oriented x3. HEENT: Head: Atraumatic, normocephalic. Eyes: Pupils are equal, reactive to light and accommodation. Oropharynx is clear. Mucosa moist. Neck: Supple. No JVD. No bruit bilaterally. Cardiovascular: Regular rate and rhythm. No murmur. Respiratory : Clear to auscultation bilaterally. Abdomen: Soft and nontender. Bowel sounds are present in all 4 quadrants. Extremities: There is no edema. Pulses are +2 bilaterally. No clubbing or cyanosis. The right knee is in Cryo unit. Postoperative dressings in the right knee were not removed for evaluation. Psychiatric Evaluation: Oriented x3 with no evidence of anxiety or depression. DIAGNOSTIC STUDIES/LAB DATA: None obtained currently. ASSESSMENT AND PLAN: 1. In regards to postoperative management of patient's right knee, this is as per orthopedic surgeons. 2. In regards to the patient's hypertension management, the patient's lisinopril is going to be held for the time being. The patient is going to be continued on her Toprol-XL. 3. For DVT prophylaxis, the patient was placed by the primary service on Coumadin and enoxaparin. 4. The patient's code status is full and her surrogate is her . TIME SPENT: Approximately 52 minutes was spent on consultation of this patient , more than half of that time was spent [id number] with the patient during the interview and physical exam. Thank you very much for allowing me to see your patient in consultation. We will follow up on postoperative day 1. [id number]/[facility] #: [id number] SYEDA
[2018-11-12] MEDS: ceFAZolin 1 GM ADVAN(*) 1 GM in NS 0.9% 50 ML* 50 ML IVPB SCH (20:15)
[2018-11-12] MEDS: Ondansetron TAB* 4 MG PO PRN (23:56)
[2018-11-13] MEDS: ceFAZolin 1 GM ADVAN(*) 1 GM in NS 0.9% 50 ML* 50 ML IVPB SCH ×2 (03:57→11:46)
[2018-11-13] MEDS: oxyCODONE/Acetamin 5/325 MG* TAB PO PRN ×4 (03:57→22:39)
[2018-11-13 05:31] LABS: Hematocrit 36 % (35-47); Hemoglobin 12.2 g/dl (12.0-16.0); Mean Platelet Volume 7.7 fL (7.4-10.4); Platelet Count 236 10^3/ul (150-450)
[2018-11-13 05:41] LABS: INR 0.98 (0.77-1.02)
[2018-11-13 05:48] LABS: BUN/Creatinine Ratio 13.8 (8-20); Calcium 8.9 mg/dL (8.6-10.3); EGFR Non-African American 70.7 (>60); Potassium 4.1 mmol/L (3.5-5.0)
[2018-11-13] MEDS: oxyCODONE TAB* 5 MG TAB PO PRN ×3 (06:15→18:23)
[2018-11-13] MEDS: Ondansetron TAB* 4 MG PO PRN (06:16)
[2018-11-13] MEDS: Acetaminophen TAB* 325 MG PO SCH ×3 (07:11→23:40)
[2018-11-13] MEDS: Magnesium Hydroxide LIQ* 30 ML UDC PO SCH ×2 (08:29→22:11)
[2018-11-13] MEDS: Docusate CAP* 100 MG PO SCH ×2 (08:29→22:11)
[2018-11-13] MEDS: Metoprolol Succinate XL TAB* 25 MG PO SCH (08:38)
[2018-11-13] MEDS ORDERED: Lisinopril TAB* 10 MG PO SCH (09:00)
--- NOTE | 2018-11-13 10:19 | PN ---
Progress Note - Progress Note Date of Service: 11/13/18 SOAP: Subjective: []Patient was seen and examined at bedside. She is feeling very well. Right knee pain is well controlled. Denies CP, SOB, dizziness, nausea. Objective: []General: Well appearing, NAD RLE: Right knee dressing CDI, cryo in use, thigh is soft, DF/PF intact, DP2+, sensation intact distally Calves supple and nontender without erythema, edema or palpable cords Assessment: []POD 1 sp RTK arthroplasty Plan: []WBAT PT/OT Lovenox and coumadin for DVT prophylaxis. Coumadin 8 mg today Plan for DC home tomorrow Vital Signs Temp 98.0 F 11/13/18 07:38 Pulse 54 11/13/18 08:32 Resp 18 11/13/18 08:29 BP 147/62 11/13/18 07:38 Pulse Ox 100 11/13/18 07:38 Intake & Output 11/12/18 11/13/18 11/13/18 18:59 06:59 18:59 Intake Total 2580 1290 210 Output Total 2850 1850 Balance -270 -560 210 Weight 191 lb 3.2 oz Intake: IV Fluids 1850 990 LR 1800 990 NS 50ML, Cefazolin 2G 50 Oral 730 300 210 Output: Martinez 2600 1850 Estimated Blood Loss 250 Laboratory Last Values Hgb 12.2 g/dl (12.0-16.0) 11/13/18 05:17 Hct 36 % (35-47) 11/13/18 05:17 Plt Count 236 10^3/ul (150-450) 11/13/18 05:17 MPV 7.7 fL (7.4-10.4) 11/13/18 05:17 INR (Anticoag Therapy) 0.98 (0.77-1.02) 11/13/18 05:17 Sodium 136 mmol/L (135-145) 11/13/18 05:17 Potassium 4.1 mmol/L (3.5-5.0) 11/13/18 05:17 Chloride 103 mmol/L (101-111) 11/13/18 05:17 Carbon Dioxide 27 mmol/L (22-32) 11/13/18 05:17 Anion Gap 6 mmol/L (2-11) 11/13/18 05:17 BUN 11 mg/dL (6-24) 11/13/18 05:17 Creatinine 0.80 mg/dL (0.51-0.95) 11/13/18 05:17 Est GFR ( Amer) 85.6 (>60) 11/13/18 05:17 Est GFR (Non-Af Amer) 70.7 (>60) 11/13/18 05:17 BUN/Creatinine Ratio 13.8 (8-20) 11/13/18 05:17 Glucose 149 mg/dL (70-100) H 11/13/18 05:17 Calcium 8.9 mg/dL (8.6-10.3) 11/13/18 05:17
--- NOTE | 2018-11-13 10:27 | OP ---
DATE OF OPERATION: 11/12/18 - ROOM #346 DATE OF : 49 ATTENDING SURGEON: Anay Tracey MD PLY CUTTER: BRAD Trujillo ANESTHESIOLOGIST: Dr. Aguilar. ANESTHESIA: Spinal. PRE-OP DIAGNOSIS: Severe end-stage degenerative osteoarthritis of the right knee joint without deformity. POST-OP DIAGNOSIS: Severe end-stage degenerative osteoarthritis of the right knee joint without deformity. OPERATIVE PROCEDURE: Right total knee arthroplasty. TOURNIQUET TIME: 38 minutes. COMPLICATIONS: None. ESTIMATED BLOOD LOSS: 200 cc. SPECIMENS: Bone and cartilage from the right knee joint sent to Pathology. HARDWARE USED: This is cemented [employer]hew total knee arthroplasty hardware. Two packages of Simplex bone cement. For the femur, a right size 4 narrow Legion posterior stabilized femoral component. For the tibia, a size 3 right tibial base plate, Lorena II. For the insert, a 9 mm posterior stabilized articular insert size 3/4. For the patella, a 32 mm 3-peg all poly patella. BRIEF HISTORY/INDICATIONS: Ms. Villar is a 73-year-old female with years of increasingly severe right knee pain and valgus deformity. Her radiographs showed [id number] arthritis. Due to continued pain and decreased quality of life, she elected to undergo a right total knee arthroplasty. Informed consent was obtained from the patient. She understood the risks of surgery included but were not limited to bleeding, infection, damage to nearby structures, continued pain, need for further surgery, intraoperative fracture, nerve palsy, hardware failure or loosening, knee stiffness, loss of motion, stroke, heart attack, blood clot, and . She wished to proceed. INTRAOPERATIVE FINDINGS: Intraoperatively, the patient had valgus deformity of 12 degrees. She had extensive osteopenia noted throughout the procedure. She had complete loss of cartilage in the medial, lateral and patellofemoral compartments. She had extensive osteophyte formation. DESCRIPTION OF PROCEDURE: Ms. Villar was identified in the preanesthesia unit. Her right lower extremity was marked as the correct operative side. Informed consent was signed and placed in the chart. The patient was taken to the operating room and placed under spinal anesthesia. A Martinez catheter was placed. Tourniquet was placed on the right thigh. Right lower extremity was prepped and draped in the usual sterile fashion. Preop time-out was made to correctly identify the patient, side, and site. Appropriate perioperative antibiotics were given within 1 hour of incision. Tourniquet was inflated and total tourniquet time for this procedure was 38 minutes. A midline incision was made with a 10 blade and carried down to the extensor mechanism. A new 10 blade was used to make a standard medial parapatellar arthrotomy. Patella was subluxed laterally. Electrocautery was used to subperiosteally elevate soft tissue off the superomedial tibia to the mid sagittal plane. The knee was flexed up. The anterior horn of the lateral meniscus and ACL were sharply released. A drill was used to enter the distal femur. Intramedullary distal femoral cutting guide was pinned on the distal femur. Oscillating saw was used to make the distal femoral cut. Lateral femoral condylar hypoplasia was noted and accounted for. Next, the external rotation guide was pinned on the distal femur. Distal femur was sized to a size 4. Size 4 multi-cutting jig was pinned on the distal femur. Oscillating saw was used to make the appropriate 4 chamfer cuts. The PCL was completely released and the tibia was subluxed anteriorly. Extramedullary tibial cutting guide was pinned on the proximal tibia. Oscillating saw was used to make a proximal tibial cut perpendicular to the mechanical axis of the tibia. The bone was carefully removed. The knee was brought out into full extension. Spacer block had excellent fit with the knee in full extension. Medial and lateral ligaments were well balanced. Flexion and extension gaps were well balanced. The knee was flexed up. [facility] lead psychologist was placed both medially and laterally. Any remaining meniscus was carefully removed using electrocautery. Curved osteotome was used to remove any posterior osteophytes. Tibial tray and drop janae were placed and once again confirmed a satisfactory tibial cut. This was confirmed. A size 4 narrow right femoral trial was impacted onto the distal femur and had excellent stability. The box for the posterior stabilized implant was prepared using a reamer and box-cut osteotome. A size 3 tibial tray trial with a 9 mm insert trial was placed and the knee was taken through a range of motion. The knee had full extension to 130 degrees of flexion with satisfactory patellofemoral tracking. Patella was everted. A 7 mm subpatellar bone and cartilage were carefully removed using an oscillating saw. Patella was sized to a size 32. Three peg holes were drilled through the size 32 guide. A 32 trial patella with 7.5 thickness was placed and the knee was taken through a range of motion. The knee had satisfactory patellofemoral tracking. All trials were removed. The tibia was subluxed anteriorly and sized to a size 3. Proximal tibia was prepared using a size 3 keel punch. All bony cut surfaces were copiously irrigated with sterile saline and dried. Final implants were cemented into place starting with the tibia, followed by the femur, and last the patella. A 9 mm insert trial was placed and the knee was brought out into full extension. Tourniquet was turned down at 38 minutes. The knee was copiously irrigated with sterile saline. The electrocautery was used to obtain meticulous hemostasis. Once the cement had fully cured, the insert trial was removed. Any excess cement was removed from around the capsule and hardware. Final insert chosen was a 9 mm posterior stabilized articular insert size 3/4. This was locked into position on the tibial tray without difficulty. Stability of the insert was checked and rechecked and noted to be stable. The knee was copiously irrigated with sterile saline. The extensor mechanism was closed using interrupted #1 Vicryl. The rest of the incision was closed in a layered fashion using 0 and 2-0 Vicryl. Skin was closed using running 3-0 nylon suture. Sterile Xeroform, 4x4's, and Webril were used to cover the incision. Uche wrap and cold pack were placed over this. The patient's anesthesia was reversed without difficulty. She was brought to the PACU in stable condition. Intended weightbearing will be weightbearing as tolerated. Intended DVT prophylaxis will be Coumadin with a Lovenox bridge. [id number]/[facility] #: [id number] [facility]Ang
[2018-11-13] MEDS: Ondansetron INJ* 2 MG/ML VIAL IV PRN (11:44)
[2018-11-13] MEDS: Enoxaparin(*) 40 MG/0.4 ML SYR SUBCUT SCH (11:46)
[2018-11-13] MEDS ORDERED: Scopolamine 1.5 mg* PATCH TRANSDERM SCH (13:00)
--- NOTE | 2018-11-13 16:11 | PN ---
Subjective Date of Service: 11/13/18 Interval History: Pt feels well. R knee is painful when walking Objective Active Medications: Acetaminophen (Tylenol Tab*) 975 mg PO Q8H [facility] Last Admin: 11/13/18 15:18 Dose: Not Given Bisacodyl (Dulcolax Supp*) 10 mg AL DAILY PRN PRN Reason: constipation Cyclobenzaprine HCl (Flexeril Tab*) 10 mg PO TID PRN PRN Reason: SPASMS Diphenhydramine HCl (Benadryl Iv*) 12.5 mg IV Q6H PRN PRN Reason: PRURITIS Docusate Sodium (Colace Cap*) 100 mg PO BID [facility] Last Admin: 11/13/18 08:29 Dose: 100 mg Enoxaparin Sodium (Lovenox(*)) 40 mg SUBCUT Q24H [facility] Last Admin: 11/13/18 11:46 Dose: 40 mg Lactated Ringer's (Lactated Ringers 1000 Ml Bag*) 1,000 mls @ 100 mls/hr IV PER RATE [facility] Last Admin: 11/13/18 01:15 Dose: 100 mls/hr Lactulose (Lactulose*) 30 ml PO Q6H PRN PRN Reason: constipation Magnesium Hydroxide (Milk Of Magnesia Liq*) 30 ml PO BID [facility] Last Admin: 11/13/18 08:29 Dose: 30 ml Magnesium Hydroxide (Milk Of Magnesia Liq*) 30 ml PO Q6H PRN PRN Reason: constipation Metoprolol Succinate (Toprol Xl Tab*) 25 mg PO QAM [facility] Last Admin: 11/13/18 08:38 Dose: 25 mg Morphine Sulfate (Morphine Vial*) 2 mg IV Q2H PRN PRN Reason: PAIN Last Admin: 11/12/18 20:08 Dose: 2 mg Ondansetron HCl (Zofran Inj*) 4 mg IV Q6H PRN PRN Reason: nausea Last Admin: 11/13/18 11:44 Dose: 4 mg Ondansetron HCl (Zofran Tab*) 4 mg PO Q6H PRN PRN Reason: NAUSEA Last Admin: 11/13/18 06:16 Dose: 4 mg Oxycodone HCl (Roxycodone Tab*) 10 mg PO Q4H PRN PRN Reason: SEVERE PAIN Last Admin: 11/13/18 11:47 Dose: 10 mg Oxycodone/Acetaminophen (Percocet 5/325 Tab*) 1 tab PO Q4H PRN PRN Reason: PAIN Oxycodone/Acetaminophen (Percocet 5/325 Tab*) 2 tab PO Q4H PRN PRN Reason: PAIN Last Admin: 11/13/18 08:28 Dose: 2 tab Pharmacy Profile Note (Coumadin Daily Reminder*) 1 note FOLLOW UP 1700 KIMBERLYN Pharmacy Profile Note (Scopolamine Patch Remove*) 1 note PATCH OFF Q72H [facility] Polyethylene Glycol/Electrolytes (Miralax*) 17 gm PO DAILY PRN PRN Reason: Constipation Scopolamine (Transderm-Scop 1.5 Mg Patch*) 1 patch TRANSDERM Q72H [facility] Last Admin: 11/13/18 12:56 Dose: 1 patch Tramadol HCl (Ultram*) 50 mg PO Q6H PRN PRN Reason: PAIN Warfarin Sodium (Coumadin Tab(*)) 8 mg PO ONCE@1700 ONE; Protocol Stop: 11/13/18 17:01 Vital Signs - 8 hr 11/13/18 11/13/18 11/13/18 08:28 08:29 08:32 Temperature Pulse Rate 54 Respiratory 18 18 Rate Blood Pressure (mmHg) O2 Sat by Pulse Oximetry 11/13/18 11/13/18 11/13/18 11:30 11:47 11:48 Temperature 97.6 F Pulse Rate 49 Respiratory 17 18 18 Rate Blood Pressure 138/57 (mmHg) O2 Sat by Pulse 99 Oximetry 11/13/18 11/13/18 15:17 15:31 Temperature 97.6 F Pulse Rate 54 Respiratory 16 16 Rate Blood Pressure 152/70 (mmHg) O2 Sat by Pulse 99 Oximetry Oxygen Devices in Use Now: None Appearance: 73 yo f in nAD, AAOx3 Eyes: No Scleral Icterus, PERRLA Ears/Nose/Mouth/Throat: NL Teeth, Lips, Gums, Mucous Membranes Moist Neck: NL Appearance and Movements; NL JVP, Trachea Midline Respiratory: Symmetrical Chest Expansion and Respiratory Effort, Clear to Auscultation Cardiovascular: NL Sounds; No Murmurs; No JVD, RRR Abdominal: NL Sounds; No Tenderness; No Distention, No Hepatosplenomegaly Lymphatic: No Axillary Adenopathy Extremities: No Edema, No Clubbing, Cyanosis, - - R knee in cryo unit, surgical dressings not removed Skin: No Rash or Ulcers, No Nodules or Sclerosis Neurological: Alert and Oriented x 3, NL Muscle Strength and Tone Result Diagrams: 11/13/18 05:17 11/13/18 05:17 Assess/Plan/Problems-Billing Assessment: 73 yo f with h/o HTN, colon ca s/p R TKA - Patient Problems (1) Status post total right knee replacement Comment: as per ortho (2) HTN (hypertension) Comment: cont lopressor, restarting lisinopril (3) DVT prophylaxis Comment: lovenox Status and Disposition: medicine consult
[2018-11-13] MEDS ORDERED: Warfarin TAB(*) 4 MG PO ONE (17:00)
[2018-11-14] MEDS: oxyCODONE TAB* 5 MG TAB PO PRN ×2 (01:58→12:19)
[2018-11-14] MEDS: oxyCODONE/Acetamin 5/325 MG* TAB PO PRN ×2 (03:58→08:37)
[2018-11-14 06:20] LABS: Hematocrit 33 % (35-47); Platelet Count 204 10^3/ul (150-450)
[2018-11-14 06:25] LABS: INR 1.4 (0.77-1.02)
[2018-11-14] MEDS: Acetaminophen TAB* 325 MG PO SCH (07:20)
[2018-11-14] MEDS: Magnesium Hydroxide LIQ* 30 ML UDC PO SCH (08:36)
[2018-11-14] MEDS: Docusate CAP* 100 MG PO SCH (08:36)
[2018-11-14] MEDS: Metoprolol Succinate XL TAB* 25 MG PO SCH (08:37)
[2018-11-14] MEDS ORDERED: Lisinopril TAB* 10 MG PO SCH (09:00)
--- NOTE | 2018-11-14 11:22 | PN ---
Progress Note - Progress Note Date of Service: 11/14/18 SOAP: Subjective: []Patient seen and examined at beside, she feels well without CP, SOB, dizziness , nausea. Objective: []General: Well appearing, NAD RLE: Right knee dressing CDI, cryo in use, thigh is soft, DF/PF intact, DP2+, sensation intact distally Calves supple and nontender without erythema, edema or palpable cords Assessment: []POD 2 s/p RTK arthroplasty Plan: []WBAT PT/OT DC home today. Has not reached a therapeutic INR, will change DVT prophylaxis to eliquis 2.5 mg po BID Vital Signs Temp 97.4 F 11/14/18 07:41 Pulse 65 11/14/18 08:39 Resp 18 11/14/18 08:37 BP 123/45 11/14/18 08:39 Pulse Ox 97 11/14/18 07:41 Intake & Output 11/13/18 11/14/18 11/14/18 18:59 06:59 18:59 Intake Total 2032 1000 320 Output Total 1350 1150 Balance 682 -150 320 Intake: IV Fluids 1032 LR 1032 IVPB 110 LR 110 Oral 890 1000 320 Output: Urine 1350 1150 Laboratory Last Values Hgb 11.0 g/dl (12.0-16.0) L 11/14/18 06:06 Hct 33 % (35-47) L 11/14/18 06:06 Plt Count 204 10^3/ul (150-450) 11/14/18 06:06 MPV 8.0 fL (7.4-10.4) 11/14/18 06:06 INR (Anticoag Therapy) 1.40 (0.77-1.02) H 11/14/18 06:06 Sodium 136 mmol/L (135-145) 11/13/18 05:17 Potassium 4.1 mmol/L (3.5-5.0) 11/13/18 05:17 Chloride 103 mmol/L (101-111) 11/13/18 05:17 Carbon Dioxide 27 mmol/L (22-32) 11/13/18 05:17 Anion Gap 6 mmol/L (2-11) 11/13/18 05:17 BUN 11 mg/dL (6-24) 11/13/18 05:17 Creatinine 0.80 mg/dL (0.51-0.95) 11/13/18 05:17 Est GFR ( Amer) 85.6 (>60) 11/13/18 05:17 Est GFR (Non-Af Amer) 70.7 (>60) 11/13/18 05:17 BUN/Creatinine Ratio 13.8 (8-20) 11/13/18 05:17 Glucose 149 mg/dL (70-100) H 11/13/18 05:17 Calcium 8.9 mg/dL (8.6-10.3) 11/13/18 05:17
[2018-11-14 11:30] VITALS: BP 114/53
[2018-11-14] MEDS: Enoxaparin(*) 40 MG/0.4 ML SYR SUBCUT SCH (11:44)
--- NOTE | 2018-11-14 22:09 | DS ---
DISCHARGE SUMMARY: DATE OF ADMISSION: 11/12/18 DATE OF DISCHARGE: 11/14/18 PROVIDER/SURGEON: Dr. Anay Tracey.* (DICTATED BY BRAD MARIE) GUNNER'S MATE M: BRAD Trujillo. PREOPERATIVE DIAGNOSIS: Severe end-stage degenerative osteoarthritis of the right knee joint without deformity. OPERATIVE PROCEDURE: Right total knee arthroplasty. HISTORY: Ms. Villar is a 73-year-old female with years of increasingly severe right knee pain and valgus deformity. She has failed conservative management and elected to undergo a right total knee arthroplasty. HOSPITAL COURSE: The patient was admitted to [facility] on . She underwent a right total knee arthroplasty without complication. On postop day 1, she was well appearing, in no acute distress. Dorsiflexion and plantar flexion intact. DP pulse 2+. Sensation is intact distally. She was also seen by hospitalist service during her stay. Lisinopril was held on postop day 0 and to postop day 1, restarted on postop day 1. Postop day 2, she was well appearing, in no acute distress. Dressing was changed. Incision clean , dry, and intact. Vital Signs: Temperature 97.4, pulse 65, respiratory rate 18, blood pressure 123/45, pulse ox 97%. Hemoglobin 11, hematocrit 33, and INR 1.40. Sodium 136, potassium 4.1. DISCHARGE MEDICATIONS: 1. Lisinopril 10 mg p.o. q.a.m. 2. Alendronate 70 mg p.o. weekly. 3. Metoprolol succinate 25 mg p.o. q.24 hours q.a.m. 4. Multivitamin for women once daily. 5. Calcium 600 plus vitamin D 1 tab p.o. q.a.m. 6. Acetaminophen 975 mg p.o. q.8 hours. 7. Docusate 100 mg p.o. b.i.d. 8. Percocet 5/325 one to two tabs every 4 to 6 hours as needed for pain, max daily dose of 10. 9. Eliquis 2.5 mg p.o. b.i.d. for 30 days. DISCHARGE PLAN: The patient will be weightbearing as tolerated. She will follow up with Dr. Tracey in 10 to 14 days. DVT prophylaxis, Eliquis 2.5 mg every 12 hours for 30 days, start first dose 11/15/18, as she received Lovenox, a different blood thinner on 11/14/18 while in hospital. Pain control, Percocet 5/325 one to two tabs every 4 to 6 hours as needed for pain, max daily dose of 10. The patient will be discharged to home. BRAD MARIE [id number]/[facility] #: [id number] [facility]
[2018-11-16] MEDS ORDERED: Scopolamine PATCH Remove* 1 NOTE MISC PATCH OFF SCH (13:00)
== END 2018-11-14 12:50 | disposition home health service (06) | DRG 470 ==
LOC: AA 08:33 → SSU 15:07
PROVIDERS: ADMIT Orthopaedic Surgery Adult Reconstructive Orthopaedic Surgery; ATTEND Orthopaedic Surgery Adult Reconstructive Orthopaedic Surgery
PROC: 0SRC0J9 Replacement of Right Knee Joint with Synthetic Substitute, Cemented, Open Approach (ICD-10-PCS; principal; 2018-11-12 11:00)
DX: M17.11 Unilateral primary osteoarthritis, right knee (principal); M21.061 Valgus deformity, not elsewhere classified, right knee; I10 Essential (primary) hypertension; M85.88 Other specified disorders of bone density and structure, other site; M25.461 Effusion, right knee; M25.761 Osteophyte, right knee; M81.0 Age-related osteoporosis without current pathological fracture; Z90.49 Acquired absence of other specified parts of digestive tract; Z85.038 Personal history of other malignant neoplasm of large intestine; Z80.41 Family history of malignant neoplasm of ovary; Z90.721 Acquired absence of ovaries, unilateral
CPT/HCPCS: 36415; 80048; 85014; 85018; 85049; 85610; A9270-GY; G8978-GP-CL; G8979-GP-CI; J0690; J1100; J1650; J2250; J2270; J2405; J2704; J2795; J3010